=== PATIENT | male | born 1970 | race Caucasian/White ===

== ENCOUNTER 2017-05-08 17:32 | Inpatient (IN) | payer MEDICARE, MEDICAID ==
[~2017-05-08] VITALS: Ht 177.8 cm; Wt 122.7 kg
[~2017-05-08 17:32] MED LIST changes: -LOR1 PO
[2017-05-08] MEDS ORDERED: FOSPHENYTOIN(*) 500 MG/10 ML V 1,000 MG in NS(*) 0.9% 100 ML BAG 80 ML IVPB ONE (17:40)
[2017-05-08] MEDS ORDERED: LORazepam 2 MG/ML VIAL IVP ONE (17:40)
--- NOTE | 2017-05-08 17:44 | ER Report ---
History and Physical Time Seen By MD: 17:38 (MARJAN HENRY DO) HPI/ROS CHIEF COMPLAINT: seizure d/o HISTORY OF PRESENT ILLNESS: PT brought in by ems for seizure. Pt has known seizure d/o after being dx with glioblastoma brain tumor in 2013. PT had surgery in 2013 and 2014 for the tumor. Pt is on vimpat per ems. Pt had a seizure at home. Per ems pt felt it come on and took 1mg ativan prior to seizing. ems was called and pt was postictal on arrival. Pt then had a second seizure lasted less then a minute and was given ativan by ems. Pt on arrival to ed had a third seizure that lasted about 1 minute that was witnessed as left lateral gaze and shaking of left arm. Pt is currently postictal. Family is on way here. PT last seizure was in March when he was found to have subdural. REVIEW OF SYSTEMS: unable to obtain due to postictal (MARJAN HENRY DO) Allergies: Coded Allergies: No Known Allergies (Verified Allergy, Mild, 03/29/16) Home Meds Reported Medications Lorazepam (LORAZEPAM) 1 Mg Tab, 1 MG PO Q8H, TAB 05/08/17 Dexamethasone (DEXAMETHASONE) 1 Mg Tab, 0.5 MG PO PRN, TAB 01/13/15 Lacosamide (VIMPAT) 100 Mg Tab, 50 MG PO BID, TAB 08/14/14 Discontinued Reported Medications Temozolomide (TEMODAR) 100 Mg Capsule, 280 MG PO 5 DAYS, THEN OFF 23, CAPSULE 08/14/14 Past Medical/Surgical History pmhx: seizures, fractures, occasional alcohol use, chemotherapy, glioblastoma. Pshx: craniotomy x2 for tumor. (MARJAN HENRY DO) Reviewed Nurses Notes: Yes Old Medical Records Reviewed: Yes (MARJAN HENRY DO) Hx Smoking: No Smoking Status: Former Smoker Hx Substance Use Disorder: Yes (UNKNOWN) Hx Alcohol Use: Yes (OCCASIONALLY) (MARJAN HENRY DO) Constitutional Vital Sign - Last 24 Hours 05/08/17 05/08/17 05/08/17 05/08/17 17:35 17:40 17:47 17:53 Pulse 125 113 Resp 60 25 B/P (MAP) 167/72 167/72 (103) Pulse Ox 95 94 O2 Delivery Non-Rebreather O2 Flow Rate 15.0 1/31/18 1/31/18 1/31/18 1/31/18 18:00 18:02 18:02 18:19 Pulse 117 Resp 27 B/P (MAP) 131/60 (83) 119/62 (81) Pulse Ox 95 O2 Flow Rate 12.0 05/08/17 05/08/17 05/08/17 05/08/17 18:32 18:34 18:37 18:43 Temp 97.8 Pulse 116 115 Resp 21 20 B/P (MAP) 103/47 (65) Pulse Ox 92 92 05/08/17 05/08/17 05/08/17 05/08/17 18:47 18:50 18:57 19:00 Pulse 111 101 Resp 20 B/P (MAP) 115/51 (72) 115/68 (84) Pulse Ox 94 98 05/08/17 05/08/17 19:07 19:17 Pulse 95 86 Pulse Ox 96 94 Intake and Output 05/08/17 05/08/17 05/09/17 15:00 23:00 07:00 Intake Total 1100 ml Balance 1100 ml (DAKOTA WALLACE MD) Physical Exam General Appearance: pt is postictal Eyes: pupils 3mm with left lateral gaze ENT: no pharyngeal erythema or exudates, Mucous membranes are moist, TM are nl b/l Respiratory: There are no retractions, lungs are clear to auscultation. Cardiovascular: Regular rate and rhythm. pulses are equal and symmetrical Gastrointestinal: Abdomen is soft and non tender, no masses, bowel sounds normal, no guarding, no rigidity or rebound Neurological: active seizure on arrival Skin: Warm and dry, no rashes. Musculoskeletal: Neck is supple non tender, no vertebral tenderness Extremities are nontender, non swollen and have full range of motion. DIFFERENTIAL DIAGNOSIS: After history and physical exam differential diagnosis was considered for intracranial bleed, return of brain tumor, brain edema, infection (LAURORA,MARJAN V ) Medical Decision Making Data Points Result Diagram: 05/08/17 1725 05/08/17 1725 Laboratory Hematology Test 05/08/17 17:25 05/08/17 18:00 05/08/17 18:25 Red Blood Count 5.79 M/uL (4.00-5.60) Mean Corpuscular Volume 98.9 fL (80.0-96.0) Mean Corpuscular Hemoglobin 30.6 pg (26.0-33.0) Mean Corpuscular Hemoglobin Concent 30.9 g/dL (32.0-36.0) Red Cell Distribution Width 14.7 % (11.5-14.5) Mean Platelet Volume 9.1 fL (7.2-11.1) Neutrophils (%) (Auto) 41.2 % (39.4-72.5) Lymphocytes (%) (Auto) 44.6 % (17.6-49.6) Monocytes (%) (Auto) 9.6 % (4.1-12.4) Eosinophils (%) (Auto) 3.9 % (0.4-6.7) Basophils (%) (Auto) 0.7 % (0.3-1.4) Nucleated RBC Relative Count (auto) 0.0 /100WBC Neutrophils # (Auto) 7.2 K/uL (2.0-7.4) Lymphocytes # (Auto) 7.8 K/uL (1.3-3.6) Monocytes # (Auto) 1.7 K/uL (0.3-1.0) Eosinophils # (Auto) 0.7 K/uL (0.0-0.5) Basophils # (Auto) 0.1 K/uL (0.0-0.1) Nucleated RBC Absolute Count (auto) 0.01 K/uL Peripheral Blood Smear Yes Y/N Sodium Level 148 mmol/L (137-145) Potassium Level 4.2 mmol/L (3.5-5.0) Chloride Level 101 mmol/L (98-107) Carbon Dioxide Level < 5 mmol/L (22-30) Blood Urea Nitrogen 18 mg/dl (9-21) Creatinine 2.00 mg/dl (0.66-1.25) Glomerular Filtration Rate Calc 36.1 Random Glucose 161 mg/dl (75-110) Calcium Level 10.7 mg/dl (8.4-10.2) Magnesium Level 2.4 mg/dl (1.7-2.2) Total Bilirubin 0.8 mg/dl (0.2-1.3) Aspartate Amino Transf (AST/SGOT) 67 U/L (0-35) Alanine Aminotransferase (ALT/SGPT) 127 U/L (0-56) Alkaline Phosphatase 118 U/L (0-126) Total Protein 9.2 gm/dl (6.3-8.2) Albumin 5.8 g/dl (3.5-5.0) Phenytoin (Dilantin) Level < 3.0 ug/ml Phenytoin Last Dose Date . Serum Alcohol < 10 mg/dl Influenza Virus Type A (PCR) Negative (NEGATIVE) Influenza Virus Type B (PCR) Negative (NEGATIVE) Blood Gas Patient Temperature 97.8 DEGREES Venous Blood pH 7.04 (7.31-7.41) Venous Blood Partial Pressure CO2 29 mmHg Venous Blood Partial Pressure O2 132 mmHg Venous Blood HCO3 8 mmol/L Venous Blood Oxygen Saturation 97 % Venous Blood Base Excess -23 mmol/L Oxygen Liters/Minute Unknown Chemistry Test 05/08/17 17:25 05/08/17 18:00 05/08/17 18:25 White Blood Count 17.6 k/uL (4.5-11.0) Red Blood Count 5.79 M/uL (4.00-5.60) Hemoglobin 17.7 g/dL (14.0-18.0) Hematocrit 57.2 % (42.0-52.0) Mean Corpuscular Volume 98.9 fL (80.0-96.0) Mean Corpuscular Hemoglobin 30.6 pg (26.0-33.0) Mean Corpuscular Hemoglobin Concent 30.9 g/dL (32.0-36.0) Red Cell Distribution Width 14.7 % (11.5-14.5) Platelet Count 319 K/uL (150-450) Mean Platelet Volume 9.1 fL (7.2-11.1) Neutrophils (%) (Auto) 41.2 % (39.4-72.5) Lymphocytes (%) (Auto) 44.6 % (17.6-49.6) Monocytes (%) (Auto) 9.6 % (4.1-12.4) Eosinophils (%) (Auto) 3.9 % (0.4-6.7) Basophils (%) (Auto) 0.7 % (0.3-1.4) Nucleated RBC Relative Count (auto) 0.0 /100WBC Neutrophils # (Auto) 7.2 K/uL (2.0-7.4) Lymphocytes # (Auto) 7.8 K/uL (1.3-3.6) Monocytes # (Auto) 1.7 K/uL (0.3-1.0) Eosinophils # (Auto) 0.7 K/uL (0.0-0.5) Basophils # (Auto) 0.1 K/uL (0.0-0.1) Nucleated RBC Absolute Count (auto) 0.01 K/uL Peripheral Blood Smear Yes Y/N Glomerular Filtration Rate Calc 36.1 Calcium Level 10.7 mg/dl (8.4-10.2) Magnesium Level 2.4 mg/dl (1.7-2.2) Total Bilirubin 0.8 mg/dl (0.2-1.3) Aspartate Amino Transf (AST/SGOT) 67 U/L (0-35) Alanine Aminotransferase (ALT/SGPT) 127 U/L (0-56) Alkaline Phosphatase 118 U/L (0-126) Total Protein 9.2 gm/dl (6.3-8.2) Albumin 5.8 g/dl (3.5-5.0) Phenytoin (Dilantin) Level < 3.0 ug/ml Phenytoin Last Dose Date . Serum Alcohol < 10 mg/dl Influenza Virus Type A (PCR) Negative (NEGATIVE) Influenza Virus Type B (PCR) Negative (NEGATIVE) Blood Gas Patient Temperature 97.8 DEGREES Venous Blood pH 7.04 (7.31-7.41) Venous Blood Partial Pressure CO2 29 mmHg Venous Blood Partial Pressure O2 132 mmHg Venous Blood HCO3 8 mmol/L Venous Blood Oxygen Saturation 97 % Venous Blood Base Excess -23 mmol/L Oxygen Liters/Minute Unknown Toxicology Test 05/08/17 17:25 Phenytoin (Dilantin) Level < 3.0 ug/ml Phenytoin Last Dose Date . Serum Alcohol < 10 mg/dl (DAKOTA WALLACE MD) ED Course/Re-evaluation ED Course 05/08/2017 5:50:07 pm will load pt with fosphenytoin. 05/08/2017 5:58:11 pm Parents arrived. Spoke with parents. They state that pt had gleioblastoma stage 4 but after 2 surgeries and chemo/radiation that it has resolved. [place] and [place] most recent MRI was this April and all was okay per family. Parents that the seizure they witnessed was "mild" and went fast. They say he did not feel well today and had nasal congestion and tought a cold was coming on so took Cold Ease. No known fevers. Did let the family know that it is change of staff and the Dr. wallace will be taking over while awaiting labs and imaging. 05/08/2017 6:05:24 pm Signed out to Dr. Wallace. (MARJAN HENRY DO) ED Course Vital signs improving throughout ED stay. 05/08/2017 7:21:07 pm heart rate 88 saturation 95% on nasal cannula. CT negative for acute cranial hemorrhage family informed after Quintana paged for admission and agrees with plan to continue fluids at this time. Decision to Disposition Date: May 08, 2017 Decision to Disposition Time: 19:21 (DAKOTA WALLACE MD) Depart Departure Latest Vital Signs Vital Signs Date Time Temp Pulse Resp B/P (MAP) Pulse Ox O2 Delivery O2 Flow Rate FiO2 05/08/17 19:17 86 94 05/08/17 19:00 115/68 (84) 05/08/17 18:47 20 05/08/17 18:34 97.8 05/08/17 18:02 12.0 05/08/17 17:35 Non-Rebreather (DAKOTA WALLACE MD) Impression: Primary Impression: Grand mal seizure Additional Impression: Recurrent seizures Condition: Improved Disposition: Admitted from ER Problem Qualifiers MARJAN HENRY DO May 08, 2017 17:44 DAKOTA WALLACE MD May 08, 2017 19:23
[2017-05-08] MEDS ORDERED: LOR1 PO (17:57)
[2017-05-08 17:58] LABS: PLATELET COUNT, AUTOMATED 319 K/uL (150-450)
[2017-05-08] MEDS ORDERED: NS(*) 0.9% 1000 ML BAG 1,000 ML IV ONE (18:20)
[2017-05-08] MEDS ORDERED: EMS NS 0.9%(*) 1000 ML BAG 1,000 ML IV ONE (18:20)
--- NOTE | 2017-05-08 18:37 | RADIOLOGY IMAGING REPORT ---
FAC[place] [facility] [place]IENT NAME: Milli Ram : 1970 MR: [id number] V: [id number] EXAM DATE: ORDERING PHYSICIAN: MARJAN HENRY TECHNOLOGIST: Location[place] [facility] [place]: Milli Ram : 1970 Visit/Account:[id number] Date of Sevice: 05/08/2017 CHEST SINGLE AP History: Seizure, congestion. Comparison 03/29/2016. FINDINGS: Lungs are clear, no effusion. No pneumothorax. Heart size within normal limits. Mediastinal contour w ithin normal limits. IMPRESSION: No evidence of acute cardiopulmonary disease. Report Dictated By: Aric Carlson MD at 05/08/2017 6:32 PM Report E-Signed By: Aric Carlson MD at 05/08/2017 6:32 PM WSN:[id number]
--- NOTE | 2017-05-08 18:37 | RADIOLOGY IMAGING REPORT ---
FACILITY: [facility] [place] PATIENT NAME: Milli Ram : 1970 MR: [id number] V: [id number] EXAM DATE: ORDERING PHYSICIAN: MARJAN HENRY TECHNOLOGIST: Location: [facility] Patient: Milli Ram : 1970 Visit/Account:[id number] Date of Sevice: 05/08/2017 EXAMINATION: Head CT without intravenous contrast History:Seizure TECHNIQUE: Contiguous axial images were obtained from the skull base to the vertex without intraven ous contrast. One of the following dose optimization techniques was utilized in the performance of th is exam: Automated exposure control; adjustment of the mA and/or kV according to the patient's size; or use of an iterative reconstruction technique. Specific details can be referenced in the facility 's radiology CT exam operational policy. COMPARISON STUDIES: 03/29/2016 FINDINGS: Visualized mastoid air cells / paranasal sinuses: negative Skull base / calvarium: Remote right parietal craniotomy. White matter: Right parietal lobe encephalomalacia unchanged. Mild chronic small vessel disease. Dural venous sinuses / arterial structures: negative Ventricles / sulci / fissures: Enlarged but within normal limits for age. Masses / hemorrhage / midline shift: negative Extra-axial spaces: negative IMPRESSION: No evidence of acute intracranial pathology or significant change. Report Dictated By: Aric Carlson MD at 05/08/2017 6:30 PM Report E-Signed By: Aric Calrson MD at 05/08/2017 6:32 PM WSN:[id number]
[2017-05-08 20:11] VITALS: BP 111/53
[2017-05-08] MEDS ORDERED: NS(*) 0.9% 1000 ML BAG 1,000 ML IV PRN (20:52)
[2017-05-08] MEDS: PATIENT'S OWN MED PO SCH (21:00)
--- NOTE | 2017-05-08 21:18 | History & Physical ---
History of Present Illness Chief Complaint Seizure History of Present Illness 46yo male with PMHx significant for seizure disorder following craniotomy for resection of glioblastoma in 2013. He has been managed with Vimpat 50mg PO BID and Ativan 1mg PO along with Decadron 1mg PO PRN seizure. His seizures are reported as focal with generalization. He will begin with weakness/heaviness in left arm and will occasionally resolve, but can generalize. He reports that he has been doing very well up until this evening. Tonight he was working on his computer, which can occasionally cause his seizures to occur. He remembers the left upper extremity symptoms and then he does not remember much else. His family reports at least two generalized tonic-clonic seizures. He was brought to the ER for evaluation and was noted to have focal seizure activity. He was still rather confused/post-ictal. His CT scan did not show any acute changes. His labs were remarkable for elevation of his WBC count and significant acidosis. He was recommended for admission. History Problems: (1) Status post craniotomy Status: Resolved (2) Glioblastoma multiforme of brain Status: Chronic (3) Grand mal seizure Status: Chronic (4) Elevated serum creatinine Status: Chronic (5) Subdural hematoma Status: Resolved Home Meds Reported Medications Lorazepam (LORAZEPAM) 1 Mg Tab, 1 MG PO Q8H, TAB 05/08/17 Dexamethasone (DEXAMETHASONE) 1 Mg Tab, 0.5 MG PO PRN, TAB 01/13/15 Lacosamide (VIMPAT) 100 Mg Tab, 50 MG PO BID, TAB 08/14/14 Discontinued Reported Medications Temozolomide (TEMODAR) 100 Mg Capsule, 280 MG PO 5 DAYS, THEN OFF 23, CAPSULE 08/14/14 Allergies: Coded Allergies: No Known Allergies (Verified Allergy, Mild, 03/29/16) Hx Smoking: No Smoking Status: Former Smoker Hx Alcohol Use: Yes (OCCASIONALLY) Hx Substance Use Disorder: No Review of Systems Constitutional: No Fever, No Chills, No Night Sweats Eyes: No Vision Change, No Loss of Vision Cardiovascular: No Chest Pain Respiratory: No Shortness of Breath Gastrointestinal: No Nausea, No Vomiting Genitourinary: No Dysuria, No Hematuria Exam Vital Signs Vital Signs Date Time Temp Pulse Resp B/P (MAP) Pulse Ox O2 Delivery O2 Flow Rate FiO2 05/08/17 20:11 98.6 87 15 111/53 (72) 99 Nasal Cannula 2.0 General Appearance: Other (He is slightly somnolent, but awakens and answers all questions) Neuro: Other (Motor exam is grossly normal/equal) Eyes: PERRLA ENT: Oropharynx Clear Neck: No Masses Cardiovascular: Regular Rate and Rhythm Respiratory: Clear to Auscultation Chest: No Tenderness GI: Abd Soft and Non-Tender : No CVA Tenderness Lymph: No Adenopathy Extremities: Warm, Perfused Integumentary: Skin Intact without Lesion / Mass Medical Decision Making Data Points Result Diagram: 05/08/17 1725 05/08/17 1725 Item Value Date Time Albumin 5.8 g/dl H 05/08/17 1725 Total Protein 9.2 gm/dl H 05/08/17 1725 Alkaline Phosphatase 118 U/L 05/08/17 1725 Alanine Aminotransferase (ALT/SGPT) 127 U/L H 05/08/17 1725 Aspartate Amino Transf (AST/SGOT) 67 U/L H 05/08/17 1725 Total Bilirubin 0.8 mg/dl 05/08/17 1725 Magnesium Level 2.4 mg/dl H 05/08/17 1725 Calcium Level 10.7 mg/dl H 05/08/17 1725 Random Glucose 161 mg/dl H 05/08/17 1725 Serum Alcohol < 10 mg/dl 05/08/17 1725 Phenytoin (Dilantin) Level < 3.0 ug/ml 05/08/17 1725 Influenza Virus Type A (PCR) Negative 05/08/17 1800 Influenza Virus Type B (PCR) Negative 05/08/17 1800 Oxygen Liters/Minute Unknown 05/08/17 1825 Venous Blood Base Excess -23 mmol/L 05/08/17 1825 Venous Blood Oxygen Saturation 97 % 05/08/17 1825 Venous Blood HCO3 8 mmol/L 05/08/17 1825 Venous Blood Partial Pressure O2 132 mmHg 05/08/17 1825 Venous Blood Partial Pressure CO2 29 mmHg 05/08/17 182 Venous Blood pH 7.04 L 05/08/17 182 Blood Gas Patient Temperature 97.8 DEGREES 05/08/17 1825 EKG / Imaging Imaging PATIENT NAME: Milli Ram : 1970 MR: [id number] V: [id number] EXAM DATE: ORDERING PHYSICIAN: MARJAN HENRY TECHNOLOGIST: Location: [facility] - [place] Patient: Milli Ram : 1970 Visit/Account:[id number] Date of Sevice: 05/08/2017 EXAMINATION: Head CT without intravenous contrast History:Seizure TECHNIQUE: Contiguous axial images were obtained from the skull base to the vertex without intravenous contrast. One of the following dose optimization techniques was utilized in the performance of this exam: Automated exposure control; adjustment of the mA and/or kV according to the patient's size; or use of an iterative reconstruction technique. Specific details can be referenced in the facility's radiology CT exam operational policy. COMPARISON STUDIES: 03/29/2016 FINDINGS: Visualized mastoid air cells / paranasal sinuses: negative Skull base / calvarium: Remote right parietal craniotomy. White matter: Right parietal lobe encephalomalacia unchanged. Mild chronic small vessel disease. Dural venous sinuses / arterial structures: negative Ventricles / sulci / fissures: Enlarged but within normal limits for age. Masses / hemorrhage / midline shift: negative Extra-axial spaces: negative IMPRESSION: No evidence of acute intracranial pathology or significant change. Report Dictated By: Aric Carlson MD at 05/08/2017 6:30 PM Report E-Signed By: Aric Carlson MD at 05/08/2017 6:32 PM WSN:[id number] PATIENT NAME: Milli Ram : 1970 MR: [id number] V: [id number] EXAM DATE: [id number] ORDERING PHYSICIAN: MARJAN HENRY TECHNOLOGIST: Location: [facility] - [place] Patient: Milli Ram : 1970 Visit/Account:[id number] Date of Sevice: 05/08/2017 CHEST SINGLE AP History: Seizure, congestion. Comparison 03/29/2016. FINDINGS: Lungs are clear, no effusion. No pneumothorax. Heart size within normal limits. Mediastinal contour within normal limits. IMPRESSION: No evidence of acute cardiopulmonary disease. Report Dictated By: Aric Carlson MD at 05/08/2017 6:32 PM Report E-Signed By: Aric Carlson MD at 05/08/2017 6:32 PM WSN:[id number] Assessment and Plan Problems: (1) Recurrent seizures Status: Acute Assessment & Plan: Most likely a breakthrough seizure on his Vimpat. He is currently on a rather low dose. We discussed increasing his Vimpat to 100mg PO BID to hopefully reduce risk for further recurrent seizures. He is willing to make the change. He was loaded with IV Dilantin in the ER, but will hold off on adding the second agent for now. It is possible he may need further modification of his regimen. (2) Metabolic acidosis Status: Acute Assessment & Plan: Due to seizure activity. Will give generous IV fluids. Watch labs. (3) Glioblastoma multiforme of brain Status: Acute Assessment & Plan: CT scan is unchanged. May need to consider MRI. (4) Elevated serum creatinine Status: Chronic Assessment & Plan: He has chronic mild elevation of his creatinine, but it is slightly higher today. Will give IV fluids and watch labs. Venous Thromboembolism Antithrombotics Is Pt On Any Antithrombotics?: No Prophylaxis Tx Contraindicated Pharmacological Contraindicati: Medical Contraindication (recent seizure/ history of subdural hematoma) Exam Sepsis Risk: No Definite Risk MERVIN CELESTE MD May 08, 2017 21:18
[2017-05-08 23:12] VITALS: BP 117/60
[2017-05-09 06:00] LABS: PLATELET COUNT, AUTOMATED 218 K/uL (150-450)
[2017-05-09 07:49] VITALS: BP 127/69
[2017-05-09 08:32] VITALS: Ht 177.8 cm; Wt 122.7 kg
[2017-05-09] MEDS: PATIENT'S OWN MED PO SCH ×2 (08:58→09:01)
[2017-05-09] MEDS ORDERED: NS(*) 0.9% 1000 ML BAG 1,000 ML IV PRN (09:31)
[2017-05-09] MEDS ORDERED: ENOXAPARIN 40 MG/0.4ML SYR SC SCH (09:35)
[2017-05-09] MEDS ORDERED: LORazepam 1 MG TAB PO PRN (10:35)
[2017-05-09] MEDS ORDERED: DEXAMETHASONE 1 MG TAB PO PRN (10:35)
[2017-05-09 11:51] VITALS: BP 123/78
--- NOTE | 2017-05-09 13:16 | Hospitalist Depart ---
Discharge Summary Reason for Hosp/Final Diag: (1) Recurrent seizures Status: Acute Hospital Course & Plan: 46yo male with PMHx significant for seizure disorder following craniotomy for resection of glioblastoma in 2013. He has been managed with Vimpat 50mg PO BID and Ativan 1mg PO along with Decadron 1mg PO PRN seizure. His seizures are reported as focal with generalization. He will begin with weakness/heaviness in left arm and will occasionally resolve, but can generalize. He reports that he has been doing very well up until this evening. Tonight he was working on his computer, which can occasionally cause his seizures to occur. He remembers the left upper extremity symptoms and then he does not remember much else. His family reports at least two generalized tonic- clonic seizures. He was brought to the ER for evaluation and was noted to have focal seizure activity. He was still rather confused/post-ictal. His CT scan did not show any acute changes. His labs were remarkable for elevation of his WBC count and significant acidosis. He was recommended for admission. 05/08: Most likely a breakthrough seizure on his Vimpat. He is currently on a rather low dose. We discussed increasing his Vimpat to 100mg PO BID to hopefully reduce risk for further recurrent seizures. He is willing to make the change. He was loaded with IV Dilantin in the ER, but will hold off on adding the second agent for now. It is possible he may need further modification of his regimen. 2: Patient refused the 100mg Wimpat and he also refused SCD's and Lovenox. He is feeling better and he is afebrile, hemodynamically and medically stable with any further seizure activity. He said he will continue to use his home regimen of medications and he will follow the neurologist and Oncologist. (2) Metabolic acidosis Status: Resolved Hospital Course & Plan: Due to seizure activity. Will give generous IV fluids. Watch labs. 2: His HCO has improved to 20 with IVF (3) Glioblastoma multiforme of brain Status: Chronic Hospital Course & Plan: CT scan is unchanged. May need to consider MRI. (4) Elevated serum creatinine Status: Chronic Hospital Course & Plan: He has chronic mild elevation of his creatinine, but it is slightly higher today. Will give IV fluids and watch labs. 2: I have advised him to increase PO fluid intake. His GFR is 59ml/min Departure Weight (Pounds): 270 Weight (Ounces): 8.0 Result Diagram: 05/09/1751405/09/17514 Condition: Improved Discharge: Home, Self Care Time Spent: < 30 min Discharge Instructions Home Meds Reported Medications Lorazepam (LORAZEPAM) 1 Mg Tab, 1 MG PO Q8H, TAB 05/08/17 Dexamethasone (DEXAMETHASONE) 1 Mg Tab, 0.5 MG PO PRN, TAB 01/13/15 Lacosamide (VIMPAT) 100 Mg Tab, 50 MG PO BID, TAB 08/14/14 Discontinued Reported Medications Temozolomide (TEMODAR) 100 Mg Capsule, 280 MG PO 5 DAYS, THEN OFF 23, CAPSULE 08/14/14 Diet: Regular Special Instructions: Follow up with Primary Care Provider in 7-10 days Copies to: SEEMA BEEBE MD Venous Thromboembolism Antithrombotics Is Pt On Any Antithrombotics?: No GRACIE DUMONT MD May 09, 2017 13:16
[2017-05-09] MEDS ORDERED: LACOSAMIDE 100 MG TAB PO SCH (21:00)
[2017-05-10] MEDS ORDERED: INFLUENZA VIRUS VAC 0.5 ML SYR IM ONLY ONE (09:00)
== END 2017-05-09 12:40 | disposition home or self-care (01) | DRG 101 ==
LOC: ER 17:54 → MED 19:34
PROVIDERS: ADMIT Internal Medicine; ATTEND Internal Medicine
DX: G40.909 Epilepsy, unspecified, not intractable, without status epilepticus (principal); E87.2 Acidosis; R79.89 Other specified abnormal findings of blood chemistry; Z92.21 Personal history of antineoplastic chemotherapy; Z86.79 Personal history of other diseases of the circulatory system; Z87.891 Personal history of nicotine dependence; Z98.890 Other specified postprocedural states; Z85.841 Personal history of malignant neoplasm of brain
CPT/HCPCS: 36415; 70450; 71045; 80185; 80320; 82040; 82247; 82310; 82374; 82435; 82565; 82803; 82947; 83735; 84075; 84132; 84155; 84295; 84450; 84460; 84520; 85025; 87502; 96361; 96365; 96375; 99285; J2060; J7030; J7050; Q2009

== ENCOUNTER → 2017-05-08 | Outpatient (CLI) | payer MEDICARE, MEDICAID ==
[~2017-05-08] MED LIST: AMOX-559 PO; DEX1 PO; FLUT16SP19 NS; LAC100PT PO; LOR1 PO; PHEN100C88 PO; TOBOO OU; [UNRECOGNIZED DRUG - CODE] PO
[2017-05-09 08:32] VITALS: BMI 38.7
== END ==
LOC: AMB 16:50
PROVIDERS: ATTEND Nurse Practitioner
DX: G40.401 Other generalized epilepsy and epileptic syndromes, not intractable, with status epilepticus (principal); R00.0 Tachycardia, unspecified; R09.02 Hypoxemia
CPT/HCPCS: A0425; A0427

== ENCOUNTER 2017-06-19 16:20 | Emergency (ER) | payer MEDICARE, MEDICAID ==
[2017-05-09 08:32] VITALS: Wt 122.7 kg
[~2017-06-19 16:20] MED LIST changes: +LOR1 PO
--- NOTE | 2017-06-19 16:39 | ER Report ---
History and Physical Time Seen By MD: 16:16 Hx. of Stated Complaint: "chest weirdness" started about 45 min ago. "very healthy" and worried since this has never happenede before HPI/ROS CHIEF COMPLAINT: Palpitation HISTORY OF PRESENT ILLNESS: 46-year-old male history of glioblastoma status post successful wrist/resection has been cancer free now for 4 years comes to the emergency department today with a complaint of palpitations patient states that as he was walking he felt a flutter in his chest lasted several minutes and subsequently resolved on arrival here was having a believe one time before but otherwise has no other issues denies any chest pain shortness of breath nausea vomiting diarrhea fever chills diaphoresis or other complaints noted patient states currently C feels relatively symptom-free REVIEW OF SYSTEMS: Respiratory: No cough, no dyspnea. Cardiovascular: Palpitations no chest pain Gastrointestinal: No vomiting, no abdominal pain. Musculoskeletal: No back pain. Remainder of the 14 system rev: Yes Allergies: Coded Allergies: No Known Allergies (Verified Allergy, Mild, 06/19/17) Home Meds Reported Medications Lorazepam (LORAZEPAM) 1 Mg Tab, 1 MG PO Q8H, TAB 05/08/17 Dexamethasone (DEXAMETHASONE) 1 Mg Tab, 0.5 MG PO PRN, TAB 01/13/15 Lacosamide (VIMPAT) 100 Mg Tab, 50 MG PO BID, TAB 08/14/14 Reviewed Nurses Notes: Yes Old Medical Records Reviewed: Yes Hx Smoking: No Smoking Status: Former Smoker Hx Substance Use Disorder: Yes (UNKNOWN) Hx Alcohol Use: Yes (OCCASIONALLY) Constitutional Vital Sign - Last 24 Hours 06/19/17 16:28 Temp 98.5 Pulse 65 Resp 14 B/P (MAP) 144/76 Pulse Ox 95 O2 Delivery Room Air Physical Exam General Appearance: The patient is alert, has no immediate need for airway protection and no current signs of toxicity. [ ] Eyes: Pupils equal and round no injection. Respiratory: Chest is non tender, lungs are clear to auscultation. Cardiac: regular rate and rhythm [ ] Gastrointestinal: Abdomen is soft and non tender, no masses, bowel sounds normal. Musculoskeletal: Neck: Neck is supple and non tender. Extremities have full range of motion and are non tender. Skin: No rashes or lesions. [ ] DIFFERENTIAL DIAGNOSIS: After history and physical exam differential diagnosis was considered for palpitations A. fib A flutter cardiac dysrhythmia pulmonary emboli Medical Decision Making Data Points Result Diagram: 06/19/17 1644 06/19/17 1644 Laboratory Hematology Test 06/19/17 16:44 Red Blood Count 4.89 M/uL (4.00-5.60) Mean Corpuscular Volume 90.4 fL (80.0-96.0) Mean Corpuscular Hemoglobin 31.0 pg (26.0-33.0) Mean Corpuscular Hemoglobin Concent 34.2 g/dL (32.0-36.0) Red Cell Distribution Width 13.7 % (11.5-14.5) Mean Platelet Volume 8.2 fL (7.2-11.1) Neutrophils (%) (Auto) 54.1 % (39.4-72.5) Lymphocytes (%) (Auto) 32.9 % (17.6-49.6) Monocytes (%) (Auto) 9.0 % (4.1-12.4) Eosinophils (%) (Auto) 3.1 % (0.4-6.7) Basophils (%) (Auto) 0.9 % (0.3-1.4) Nucleated RBC Relative Count (auto) 0.1 /100WBC Neutrophils # (Auto) 3.5 K/uL (2.0-7.4) Lymphocytes # (Auto) 2.2 K/uL (1.3-3.6) Monocytes # (Auto) 0.6 K/uL (0.3-1.0) Eosinophils # (Auto) 0.2 K/uL (0.0-0.5) Basophils # (Auto) 0.1 K/uL (0.0-0.1) Nucleated RBC Absolute Count (auto) 0.00 K/uL D-Dimer Quantitative (PE/DVT) < 0.27 ug/ml (0-0.50) Sodium Level 138 mmol/L (137-145) Potassium Level 3.9 mmol/L (3.5-5.0) Chloride Level 102 mmol/L (98-107) Carbon Dioxide Level 25 mmol/L (22-30) Blood Urea Nitrogen 17 mg/dl (9-21) Creatinine 1.30 mg/dl (0.66-1.25) Glomerular Filtration Rate Calc 59.4 Random Glucose 131 mg/dl (75-110) Calcium Level 8.6 mg/dl (8.4-10.2) Total Bilirubin 0.4 mg/dl (0.2-1.3) Aspartate Amino Transf (AST/SGOT) 46 U/L (0-35) Alanine Aminotransferase (ALT/SGPT) 94 U/L (0-56) Alkaline Phosphatase 98 U/L (0-126) Troponin I < 0.012 ng/ml Total Protein 6.6 gm/dl (6.3-8.2) Albumin 3.7 g/dl (3.5-5.0) Chemistry Test 06/19/17 16:44 White Blood Count 6.5 k/uL (4.5-11.0) Red Blood Count 4.89 M/uL (4.00-5.60) Hemoglobin 15.2 g/dL (14.0-18.0) Hematocrit 44.3 % (42.0-52.0) Mean Corpuscular Volume 90.4 fL (80.0-96.0) Mean Corpuscular Hemoglobin 31.0 pg (26.0-33.0) Mean Corpuscular Hemoglobin Concent 34.2 g/dL (32.0-36.0) Red Cell Distribution Width 13.7 % (11.5-14.5) Platelet Count 195 K/uL (150-450) Mean Platelet Volume 8.2 fL (7.2-11.1) Neutrophils (%) (Auto) 54.1 % (39.4-72.5) Lymphocytes (%) (Auto) 32.9 % (17.6-49.6) Monocytes (%) (Auto) 9.0 % (4.1-12.4) Eosinophils (%) (Auto) 3.1 % (0.4-6.7) Basophils (%) (Auto) 0.9 % (0.3-1.4) Nucleated RBC Relative Count (auto) 0.1 /100WBC Neutrophils # (Auto) 3.5 K/uL (2.0-7.4) Lymphocytes # (Auto) 2.2 K/uL (1.3-3.6) Monocytes # (Auto) 0.6 K/uL (0.3-1.0) Eosinophils # (Auto) 0.2 K/uL (0.0-0.5) Basophils # (Auto) 0.1 K/uL (0.0-0.1) Nucleated RBC Absolute Count (auto) 0.00 K/uL D-Dimer Quantitative (PE/DVT) < 0.27 ug/ml (0-0.50) Glomerular Filtration Rate Calc 59.4 Calcium Level 8.6 mg/dl (8.4-10.2) Total Bilirubin 0.4 mg/dl (0.2-1.3) Aspartate Amino Transf (AST/SGOT) 46 U/L (0-35) Alanine Aminotransferase (ALT/SGPT) 94 U/L (0-56) Alkaline Phosphatase 98 U/L (0-126) Troponin I < 0.012 ng/ml Total Protein 6.6 gm/dl (6.3-8.2) Albumin 3.7 g/dl (3.5-5.0) Coagulation Test 06/19/17 16:44 D-Dimer Quantitative (PE/DVT) < 0.27 ug/ml ED Course/Re-evaluation ED Course ED course medical decision making patient here for evaluation of a sensation of palpitations which is asymptomatic on arrival EKG chest x-ray unremarkable baseline labs, cardiac markers d-dimer also normal active lites within normal limits monitoring since arrival no sign of any palpitations or cardiac abnormality we'll refer him to primary care and then recommend outpatient 24- hour examination with a Holter monitor and return if symptoms worsen Decision to Disposition Date: Jun 19, 2017 Decision to Disposition Time: 17:36 Depart Departure Latest Vital Signs Vital Signs Date Time Temp Pulse Resp B/P (MAP) Pulse Ox O2 Delivery O2 Flow Rate FiO2 06/19/17 16:28 98.5 65 14 144/76 95 Room Air Impression: Primary Impression: Palpitations Condition: Improved Disposition: HOME OR SELF-CARE Referrals: GAURAV JOHN MD 5 Days Patient Instructions: Palpitations (DC) SAURABH DELUCA MD Jun 19, 2017 16:39
[2017-06-19] MEDS ORDERED: ASPIRIN 81 MG CHEW PO ONE (16:40)
--- NOTE | 2017-06-19 16:44 | EKG ---
FAC[place] [facility] [place]IENT NAME: ADILENE FORD : [id number] MR: [id number] V: [id number] EXAM DATE: ORDERING PHYSICIAN: SAURABH DELUCA TECHNOLOGIST: BARBARA Test Reason : IRREG HR Blood Pressure : / mmHG Vent. Rate : 068 BPM Atrial Rate : 068 BPM P-R Int : 182 ms QRS Dur : 118 ms QT Int : 398 ms P-R-T Axes : 036 -10 026 degrees QTc Int : 423 ms Normal sinus rhythm Incomplete right bundle branch block Borderline ECG No previous ECGs available Confirmed by LESVIA ROSE ([id number]) on 06/19/2017 6:26:42 PM Referred By: YOSI Confirmed By:LESVIA ROSE
[2017-06-19 16:53] LABS: PLATELET COUNT, AUTOMATED 195 K/uL (150-450)
--- NOTE | 2017-06-19 17:16 | RADIOLOGY IMAGING REPORT ---
FACILITY: [facility] - [place] PATIENT NAME: Milli Ram : 1970 MR: [id number] V: [id number] EXAM DATE: [id number] ORDERING PHYSICIAN: SAURABH DELUCA TECHNOLOGIST: [place] [facility] [place] Patient: Milli Ram : 1970 Visit/Account:[id number] Date of Sevice: 06/19/2017 Exam type: CHEST PA AND LAT History: Chest pain, history of smoking Comparison: May 08, 2017. Findings: The lungs are free of acute effusions, infiltrates or edema. There is no evidence of a pneumothorax or pneumomediastinum. The cardiac silhouette is normal in size. The trachea is in midline. IMPRESSION: 1. No acute cardiopulmonary process is seen Report Dictated By: Nichelle Valdez MD at 06/19/2017 5:12 PM Report E-Signed By: Nichelle Valdez MD at 06/19/2017 5:12 PM WSN:JOSÉ MIGUEL
[2017-06-19 17:51] VITALS: BP 125/76
== END 2017-06-19 18:01 | disposition home or self-care (01) ==
LOC: ER 16:33
DX: R00.2 Palpitations (principal); I45.10 Unspecified right bundle-branch block
CPT/HCPCS: 71046; 84484; 85025; 85379; 93005; 99284; A9270; 82040; 82247; 82310; 82374; 82435; 82565; 82947; 84075; 84132; 84155; 84295; 84450; 84460; 84520

== ENCOUNTER 2017-09-03 15:10 | Emergency (ER) | payer MEDICARE, MEDICAID ==
[2017-05-09 08:32] VITALS: Wt 125.6 kg
[~2017-09-03 15:10] MED LIST changes: -B VITAMIN; -CIPR-214 PO; -CREATINE; -METR-1 PO; -[UNRECOGNIZED DRUG - REMARK]
--- NOTE | 2017-09-03 15:16 | ER Report ---
History and Physical Time Seen By MD: 15:15 HPI/ROS CHIEF COMPLAINT: Seizure HISTORY OF PRESENT ILLNESS: This is a 46-year-old male who presents to the emergency department via EMS for seizure activity. Patient has a history of craniotomy for a glioblastoma resection since then has had intermittent seizures. Last seizure activity was around March or April. Today the patient had a seizure at home where he lives of his mother and father, the ambulance was contacted and arrived patient upon arrival he came alert somewhat postictal then cleared and was walking out to the ambulance to say goodbye to the EMS crew as he declined the initial transport. Patient then began to have another seizure, was given 1 mg of IV Ativan, calmed down for a few minutes and then had another seizure with a leftward gaze which is pretty typical of his seizure activity at which time he is given another 1 mg of IV Ativan. Upon arrival the patient's has a leftward gaze, eyes are open, but not responding at this time. Not following commands. GCS 10. Incontinent of urine upon arrival. According to the mother the patient has been given his usual medications at home in addition to 2 doses of Ativan at home. According to the mother fluorescent lights and the changes in barometric pressure often times will cause seizure activity. No recent chills, chest pain or shortness of breath according to the mother no other complaints. Also of note is going to the mother the patient has been seen down in its [facility] and has been cancer free since his surgery however on his last appointment they did note there was a spot was questionable they're unsure if this was cancer or artifact and they were going to rescan and address this in the next couple of weeks. Patient takes Vimpat, dexamethasone and lorazepam for his seizure suppression. The patient is classified as "ANILA, non-epileptic seizures". REVIEW OF SYSTEMS: Constitutional: No fever, no chills. Eyes: As above. ENT: No sore throat. Cardiovascular: No chest pain, no palpitations. Respiratory: No cough, no shortness of breath. Gastrointestinal: No abdominal pain, no vomiting. Genitourinary: As above. Musculoskeletal: No back pain. Skin: No rashes. Neurological: As above. Allergies: Coded Allergies: No Known Allergies (Verified Allergy, Mild, 09/03/17) Home Meds Reported Medications Lorazepam (LORAZEPAM) 1 Mg Tab, 1 MG PO Q8H, TAB 05/08/17 Dexamethasone (DEXAMETHASONE) 1 Mg Tab, 0.5 MG PO PRN, TAB 01/13/15 Lacosamide (VIMPAT) 100 Mg Tab, 50 MG PO BID, TAB 08/14/14 Past Medical/Surgical History Patient has a past medical and surgical history of glioblastoma, craniotomy, nonepileptic seizures, right hand fracture, chemotherapy Reviewed Nurses Notes: Yes Hx Smoking: No Smoking Status: Former Smoker Hx Substance Use Disorder: Yes (UNKNOWN) Hx Alcohol Use: Yes (OCCASIONALLY) Constitutional Vital Sign - Last 24 Hours 09/03/17 09/03/17 09/03/17 09/03/17 15:15 15:21 15:25 15:30 Temp 97.4 Pulse 112 113 Resp 18 32 B/P (MAP) 127/79 (95) 127/79 130/74 (92) Pulse Ox 95 95 O2 Delivery Non-Rebreather 09/03/17 09/03/17 09/03/17 09/03/17 15:30 15:51 15:55 16:00 Pulse 119 Resp 25 B/P (MAP) 124/76 (92) 119/65 (83) Pulse Ox 92 O2 Flow Rate 10.0 09/03/17 09/03/17 09/03/17 09/03/17 16:10 16:15 16:25 16:30 Pulse 108 98 Resp 21 17 B/P (MAP) 100/48 (65) 106/60 (75) Pulse Ox 93 93 09/03/17 09/03/17 09/03/17 09/03/17 16:30 16:40 16:45 16:55 Pulse 121 90 Resp 17 B/P (MAP) 100/69 (79) Pulse Ox 90 92 O2 Flow Rate 09/03/17 09/03/17 09/03/17 09/03/17 17:00 17:05 17:15 17:30 Pulse 85 B/P (MAP) 108/59 (75) 105/63 (77) 104/62 (76) Pulse Ox 92 09/03/17 09/03/17 17:35 17:45 Pulse 92 B/P (MAP) 116/83 (94) Physical Exam General Appearance: The patient is alert, has no immediate need for airway protection and no signs of toxicity, gaze to the left, with twitching of the hands, more on the left than the right. Eyes: Pupils equal and round no pallor or injection. Pupils reactive to light, equal. ENT, Mouth: Mucous membranes are moist. Respiratory: There are no retractions, lungs are clear to auscultation. Cardiovascular: Regular rate and rhythm., No murmurs, clicks or rubs. Gastrointestinal: Abdomen is soft and non tender, no masses, bowel sounds normal. Neurological: GCS of 10. Left lateral gaze eyes open spontaneously, patient's feet did withdrawal when the plantar surface of the feet rubbed firmly with an pen. No verbal response at the time of my exam. GCS 15 upon discharge. Skin: Warm and dry, no rashes. Musculoskeletal: Neck is supple non tender. Extremities are nontender, nonswollen and have full range of motion. DIFFERENTIAL DIAGNOSIS: After history and physical exam differential diagnosis was considered for a seizure including but not limited to electrolyte abnormality, alcohol withdrawal, medication noncompliance, head injury, and breakthrough seizure. Medical Decision Making Data Points Result Diagram: 09/03/17 1510 09/03/17 1510 Laboratory Hematology Test 09/03/17 15:10 09/03/17 15:36 Red Blood Count 5.39 M/uL (4.00-5.60) Mean Corpuscular Volume 95.5 fL (80.0-96.0) Mean Corpuscular Hemoglobin 31.2 pg (26.0-33.0) Mean Corpuscular Hemoglobin Concent 32.7 g/dL (32.0-36.0) Red Cell Distribution Width 13.4 % (11.5-14.5) Mean Platelet Volume 8.7 fL (7.2-11.1) Neutrophils (%) (Auto) 48.8 % (39.4-72.5) Lymphocytes (%) (Auto) 37.0 % (17.6-49.6) Monocytes (%) (Auto) 10.3 % (4.1-12.4) Eosinophils (%) (Auto) 3.4 % (0.4-6.7) Basophils (%) (Auto) 0.5 % (0.3-1.4) Nucleated RBC Relative Count (auto) 0.0 /100WBC Neutrophils # (Auto) 7.3 K/uL (2.0-7.4) Lymphocytes # (Auto) 5.5 K/uL (1.3-3.6) Monocytes # (Auto) 1.5 K/uL (0.3-1.0) Eosinophils # (Auto) 0.5 K/uL (0.0-0.5) Basophils # (Auto) 0.1 K/uL (0.0-0.1) Nucleated RBC Absolute Count (auto) 0.00 K/uL Peripheral Blood Smear Yes Y/N Sodium Level 144 mmol/L (137-145) Potassium Level 4.0 mmol/L (3.5-5.0) Chloride Level 101 mmol/L (98-107) Carbon Dioxide Level 5 mmol/L (22-30) Blood Urea Nitrogen 19 mg/dl (9-21) Creatinine 1.60 mg/dl (0.66-1.25) Glomerular Filtration Rate Calc 46.8 Random Glucose 153 mg/dl (75-110) Calcium Level 9.8 mg/dl (8.4-10.2) Magnesium Level 2.3 mg/dl (1.7-2.2) Total Bilirubin 0.6 mg/dl (0.2-1.3) Aspartate Amino Transf (AST/SGOT) 77 U/L (0-35) Alanine Aminotransferase (ALT/SGPT) 106 U/L (0-56) Alkaline Phosphatase 111 U/L (0-126) Total Protein 8.3 gm/dl (6.3-8.2) Albumin 5.3 g/dl (3.5-5.0) Whole Blood Glucose 149 mg/DL (75-110) Chemistry Test 09/03/17 15:10 09/03/17 15:36 White Blood Count 15.0 k/uL (4.5-11.0) Red Blood Count 5.39 M/uL (4.00-5.60) Hemoglobin 16.8 g/dL (14.0-18.0) Hematocrit 51.5 % (42.0-52.0) Mean Corpuscular Volume 95.5 fL (80.0-96.0) Mean Corpuscular Hemoglobin 31.2 pg (26.0-33.0) Mean Corpuscular Hemoglobin Concent 32.7 g/dL (32.0-36.0) Red Cell Distribution Width 13.4 % (11.5-14.5) Platelet Count 290 K/uL (150-450) Mean Platelet Volume 8.7 fL (7.2-11.1) Neutrophils (%) (Auto) 48.8 % (39.4-72.5) Lymphocytes (%) (Auto) 37.0 % (17.6-49.6) Monocytes (%) (Auto) 10.3 % (4.1-12.4) Eosinophils (%) (Auto) 3.4 % (0.4-6.7) Basophils (%) (Auto) 0.5 % (0.3-1.4) Nucleated RBC Relative Count (auto) 0.0 /100WBC Neutrophils # (Auto) 7.3 K/uL (2.0-7.4) Lymphocytes # (Auto) 5.5 K/uL (1.3-3.6) Monocytes # (Auto) 1.5 K/uL (0.3-1.0) Eosinophils # (Auto) 0.5 K/uL (0.0-0.5) Basophils # (Auto) 0.1 K/uL (0.0-0.1) Nucleated RBC Absolute Count (auto) 0.00 K/uL Peripheral Blood Smear Yes Y/N Glomerular Filtration Rate Calc 46.8 Calcium Level 9.8 mg/dl (8.4-10.2) Magnesium Level 2.3 mg/dl (1.7-2.2) Total Bilirubin 0.6 mg/dl (0.2-1.3) Aspartate Amino Transf (AST/SGOT) 77 U/L (0-35) Alanine Aminotransferase (ALT/SGPT) 106 U/L (0-56) Alkaline Phosphatase 111 U/L (0-126) Total Protein 8.3 gm/dl (6.3-8.2) Albumin 5.3 g/dl (3.5-5.0) Whole Blood Glucose 149 mg/DL (75-110) EKG/Imaging EKG Interpretation 12 lead EKG: Time of EKG 1534. Rhythm: Anus tachycardia, ventricular rate 124 bpm. Wykoff: Incomplete right bundle branch block QRS: normal ST segments: Inverted T waves in the V2 V3 leads. No significant changes in the EKG from the 06/19/2017 EKG other than rate. Imaging EXAMINATION: Head CT without intravenous contrast HISTORY: Seizure. History of brain surgery and cancer. COMPARISON: 05/08/2017. TECHNIQUE: Contiguous axial images were obtained from the skull base to the vertex without intravenous contrast. Sagittal and coronal reformatted images are also submitted. One of the following dose optimization techniques was utilized in the performance of this exam: Automated exposure control; adjustment of the mA and/ or kV according to the patient's size; or use of an iterative reconstruction technique. Specific details can be referenced in the facility's radiology CT exam operational policy. FINDINGS: Brain and intracranial structures: Unchanged hypoattenuating region in the right parietal lobe with volume loss. There is mild sulcal and ventricular enlargement. Exit vacuo enlargement of the atrium of the right lateral ventricle. No midline shift, acute hemorrhage, or acute infarct. Vessels: Mild calcification of the carotid siphons. Calvarium / scalp: Right parietal craniotomy with bridging hardware. Skull base / visualized face: Negative. Visualized sinuses / orbits: Mucous retention cyst in the left maxillary sinus. IMPRESSION: No evidence of acute intracranial pathology or significant change since the previous examination. Unchanged region of encephalomalacia in the right parietal lobe. Report Dictated By: Humberto Cain MD at 09/03/2017 4:02 PM Report E-Signed By: Humberto Cain MD at 09/03/2017 4:11 PM [id number] ED Course/Re-evaluation Clinical Indication for ER IV: IV Access ED Course The patient was admitted to room via EMS. The history and physical were obtained. Differential diagnoses were considered. An IV was started via EMS. Patient was given 2 mg by mouth Ativan by his mother at home, patient was also given 2 mg IV Ativan by EMS prior to arrival. Patient arrives with her eyes open with a left-sided gaze hands are tremulous left more than the right, no other seizure activity. It does appear the patient was a condom upon arrival. A CBC and CMP were obtained. CBC showing a white count of 15 which is likely from the seizure activity, CO2 of 5, BUN 19 and creatinine 1.6, glucose 153. The CO2 is similar to what he's had in the past during seizure activities. CT of the brain was negative for any acute abnormalities no changes from previous CTs. EKG sinus tachycardia otherwise unremarkable. The patient was given a 1 L normal saline bolus. As the patient did start to arouse I did talk to him about staying in the hospital versus going home assuming that the laboratory studies and CT were not significantly different from what he's had in the past patient said that he wants to go home does not want to stay in the hospital. I did repeat the laboratory studies and CT studies with the patient and his family. I also spoke with the patient's urologist as noted below, she did make a suggestion to increase his Vimpat from 100 mg twice a day to 150 mg twice a day however the family state that they have had this discussion with the neurologist as noted below and the patient would actually prefer to stop taking the Vimpat altogether, there was also the suggestion of not using the dexamethasone unless absolutely necessary and using the Ativan as needed. The patient did wake and did feel like he was at the point where he could go home with his parents. There was no seizure activity while in the emergency department. The patient does have a follow-up with his neurologist in 4-6 weeks. Patient was instructed to return to the emergency department for any other concerns or worsening symptoms. Patient had no other questions and concerns and was discharged home. 09/03/2017 4:36:03 pm I did go back into reassess the patient, he does wake to light stimulation and voice he is alert and oriented recognizes his surroundings is able to recall seizure from earlier however he does quickly fall asleep but once again will respond with light tactile stimulation and verbal stimulation. When I spoke with patient he said that he would prefer to go home instead of staying in the hospital. 09/03/2017 4:42:34 pm I did speak with Dr. Beebe, the patient's neurologist she states that she did see him recently and they discussed at length taking his Vimpat on a regular basis and not taking the dexamethasone on a regular basis. She suggested increasing the Vimpat dose to 150 mg twice a day and she has a follow-up appointment with him in 4-6 weeks. 09/03/2017 5:00:09 pm I did speak with the patient and the parents were at the bedside regarding my conversation with Dr. Beebe and her recommendations of stopping the dexamethasone or using it very infrequently and increasing the finger pad 250 mg twice a day. The mother did state that they've at this discussion before and the patient does not want to increase the dose of the Vimpat, in fact he would like to "get off the Vimpat". The patient is more alert still sleepy but acting appropriate no seizure activity since his arrival in the emergency department. I did tell him that I will watch him for another hour or so and assuming no other seizure activity or any other concerns develop we can discharge him home at the patient's request. Decision to Disposition Date: September 03, 2017 Decision to Disposition Time: 18:02 Depart Departure Latest Vital Signs Vital Signs Date Time Temp Pulse Resp B/P (MAP) Pulse Ox O2 Delivery O2 Flow Rate FiO2 09/03/17 17:45 116/83 (94) 09/03/17 17:35 92 09/03/17 17:05 92 09/03/17 16:40 17 09/03/17 16:30 09/03/17 15:21 97.4 Non-Rebreather Impression: Primary Impression: Grand mal seizure Additional Impressions: Dehydration Elevated LFTs Condition: Improved Disposition: HOME OR SELF-CARE Referrals: SEEMA BEEBE MD (PCP) Patient Instructions: Nonepileptic Seizures (ED), Recurrent Seizures in Adults (ED) Additional Instructions: Be sure to drink plenty of water. Plenty of rest. It was the recommendation by Dr. Beebe your neurologist that you increase your Vimpat dose from 100mg BID to 150mg BID and stop taking the Dexamethasone unless you absolutely need it. Keep your follow up appointment with Dr. Beebe in [place] for the repeat brain MRI. Your CT today was unchanged from previous CT's, and no acute pathology or bleeding identified. Return to the ED for any other concerns or worsening symptoms. Problem Qualifiers MIMI GARCIA PHOTOGRAPHY MANAGER-BC September 03, 2017 15:15
--- NOTE | 2017-09-03 15:38 | EKG ---
FACILITY: PATIENT NAME: ADILENE FORD : [id number] MR: [id number] V: [id number] EXAM DATE: ORDERING PHYSICIAN: MIMI GARCIA TECHNOLOGIST: JYOTI Garza Reason : SEIZURE Blood Pressure : / mmHG Vent. Rate : 124 BPM Atrial Rate : 124 BPM P-R Int : 166 ms QRS Dur : 114 ms QT Int : 310 ms P-R-T Axes : 042 027 013 degrees QTc Int : 445 ms Sinus tachycardia Incomplete right bundle branch block Nonspecific ST and T wave abnormality Abnormal ECG When compared with ECG of 19-JUN-2017 16:28, Vent. rate has increased BY 56 BPM Confirmed by PARRISH LAZARO ([id number]) on 09/03/2017 6:40:40 PM Referred By: NOE Confirmed By:PARRISH LAZARO
[2017-09-03 15:41] LABS: PLATELET COUNT, AUTOMATED 290 K/uL (150-450)
[2017-09-03] MEDS ORDERED: NS(*) 0.9% 1000 ML BAG 1,000 ML IV ONE (16:10)
--- NOTE | 2017-09-03 16:16 | RADIOLOGY IMAGING REPORT ---
FACILITY: [facility] PATIENT NAME: Milli Ram : 1970 MR: [id number] V: [id number] EXAM DATE: ORDERING PHYSICIAN: MIMI GARCIA TECHNOLOGIST: Location: [facility] Patient: Milli Ram : 1970 Visit/Account:[id number] Date of Sevice: 09/03/2017 EXAMINATION: Head CT without intravenous contrast HISTORY: Seizure. History of brain surgery and cancer. COMPARISON: 05/08/2017. TECHNIQUE: Contiguous axial images were obtained from the skull base to the vertex without intraven ous contrast. Sagittal and coronal reformatted images are also submitted. One of the following dose optimization techniques was utilized in the performance of this exam: Autom ated exposure control; adjustment of the mA and/or kV according to the patient's size; or use of an i terative reconstruction technique. Specific details can be referenced in the facility's radiology C T exam operational policy. FINDINGS: Brain and intracranial structures: Unchanged hypoattenuating region in the right parietal lobe with volume loss. There is mild sulcal and ventricular enlargement. Exit vacuo enlargement of the atrium o f the right lateral ventricle. No midline shift, acute hemorrhage, or acute infarct. Vessels: Mild calcification of the carotid siphons. Calvarium / scalp: Right parietal craniotomy with bridging hardware. Skull base / visualized face: Negative. Visualized sinuses / orbits: Mucous retention cyst in the left maxillary sinus. IMPRESSION: No evidence of acute intracranial pathology or significant change since the previous examination. Unchanged region of encephalomalacia in the right parietal lobe. Report Dictated By: Humberto Cain MD at 09/03/2017 4:02 PM Report E-Signed By: Humberto Cain MD at 09/03/2017 4:11 PM WSN:[id number]
[2017-09-03 17:45] VITALS: BP 116/83
== END 2017-09-03 18:25 | disposition home or self-care (01) ==
LOC: ER 15:19
DX: G40.409 Other generalized epilepsy and epileptic syndromes, not intractable, without status epilepticus (principal); E86.0 Dehydration; R79.89 Other specified abnormal findings of blood chemistry
CPT/HCPCS: 36416; 70450; 82948; 83735; 85025; 93005; 96360; 99283; J7030; 82040; 82247; 82310; 82374; 82435; 82565; 82947; 84075; 84132; 84155; 84295; 84450; 84460; 84520

== ENCOUNTER → 2017-09-03 | Outpatient (CLI) | payer MEDICARE, MEDICAID ==
[2017-05-09 08:32] VITALS: BMI 38.7
[~2017-09-03] MED LIST changes: +B VITAMIN; +CIPR-214 PO; +CREATINE; +METR-1 PO; +[UNRECOGNIZED DRUG - REMARK]
== END ==
LOC: AMB 14:11
PROVIDERS: ATTEND Nurse Practitioner
DX: R56.9 Unspecified convulsions (principal); R53.83 Other fatigue; Z85.841 Personal history of malignant neoplasm of brain
CPT/HCPCS: A0425; A0427

== ENCOUNTER 2017-09-18 11:35 | Emergency (ER) | payer MEDICARE, MEDICAID ==
[2017-05-09 08:32] VITALS: Wt 122.0 kg
[2017-09-18] MEDS ORDERED: B VITAMIN (11:49)
[2017-09-18] MEDS ORDERED: [UNRECOGNIZED DRUG - REMARK] (11:50)
[2017-09-18] MEDS ORDERED: CREATINE (11:50)
--- NOTE | 2017-09-18 12:10 | ER Report ---
History and Physical Time Seen By MD: 11:38 Hx. of Stated Complaint: Pt reporting left lower back pain since 09/11. No burning or pain when urinating. Pt reports this began/ he noticed it when he was standing up from a chair. Pain is constantly there. HPI/ROS Chief Complaint: "left sided back pain" HPI: 46-year-old male presents with left sided back pain that started 4-5 days ago. The pain is located at the left costovertebral angle. Reports, he has been doing some new exercises in the gym that may have contributed to this pain. States the pain is improved slightly when he eats and made worse when drinks five-hour energy drinks. He states he usually takes creatine for muscle building as well as, medications (including dexamethasone) for a brain mass that was discovered. He is post operation x 2 for brain surgery and radiation. The patient reports some change in vision associated with his previous radiation. States, "I just wanted to come in and make sure everything is okay. I have to be careful know that they found the mass in my brain." No other treatments tried. ROS: General: denies night sweats, fever, or chills HEENT: denies, headache, reports changes in vision, denies ear pain Respiratory: denies shortness of breath, reports difficulty breathing at night - waking up with a gasp CV: denies chest pain GI: reports nausea, denies vomiting, denies constipation or diarrhea Musculoskeletal: reports left sided muscular strain Allergies: Coded Allergies: No Known Allergies (Verified Allergy, Mild, 09/03/17) Home Meds Active Scripts Ciprofloxacin Hcl (CIPROFLOXACIN HCL) 500 Mg Tablet, 500 MG PO Q12H, #20 TAB Prov:ALFA TATUM [facility] 09/18/17 Metronidazole (FLAGYL) 500 Mg Tablet, 500 MG PO TID, #30 TAB Prov:ALFA TATUM [facility] 09/18/17 Reported Medications [synthetic protien] No Conflict Check 09/18/17 [creatine] No Conflict Check 09/18/17 [b vitamin] No Conflict Check 09/18/17 Lorazepam (LORAZEPAM) 1 Mg Tab, 1 MG PO Q8H, TAB 05/08/17 Dexamethasone (DEXAMETHASONE) 1 Mg Tab, 0.5 MG PO PRN, TAB 01/13/15 Lacosamide (VIMPAT) 100 Mg Tab, 50 MG PO BID, TAB 08/14/14 Past Medical/Surgical History Brain mass with craniotomy x2 and radiation. Hx Smoking: No Smoking Status: Former Smoker Hx Substance Use Disorder: Yes (UNKNOWN) Hx Alcohol Use: Yes (OCCASIONALLY) Constitutional Vital Sign - Last 24 Hours 09/18/17 09/18/17 09/18/17 09/18/17 11:42 11:42 11:50 12:00 Temp 98.1 Pulse 72 65 Resp 16 13 B/P (MAP) 128/73 (91) 128/73 130/65 (86) Pulse Ox 93 91 09/18/17 09/18/17 09/18/17 09/18/17 12:05 12:10 12:25 12:53 Pulse 69 57 56 B/P (MAP) 118/68 (85) Pulse Ox 94 91 95 09/18/17 09/18/17 09/18/17 09/18/17 12:55 13:00 13:10 13:15 Pulse 51 64 48 Resp 23 11 B/P (MAP) 125/58 (80) Pulse Ox 93 94 94 Physical Exam Physical Examination: General: 46-year-old male in no acute distress HEENT: cranial nerves grossly intact, normocephalic, atraumatic, pupils equal, round, and reactive to light and accommodation bilaterally, TMs violette lilly without effusion bilaterally Respiratory: BL equal respiratory excursion, CTA BL Cardiovascular: Clear S1 S2, murmurs GI: normoactive BSx4, no tenderness to palpation, left sided CVA tenderness Musculoskeletal: full free ROM of the neck, trunk, and extremities Differential Diagnoses Considered: kidney stone, pancreatitis, musculoskeletal stain, and shingles Medical Decision Making Data Points Result Diagram: 09/18/17 1228 09/18/17 1228 Laboratory Hematology Test 09/18/17 12:28 09/18/17 12:32 Red Blood Count 4.83 M/uL (4.00-5.60) Mean Corpuscular Volume 88.9 fL (80.0-96.0) Mean Corpuscular Hemoglobin 31.5 pg (26.0-33.0) Mean Corpuscular Hemoglobin Concent 35.4 g/dL (32.0-36.0) Red Cell Distribution Width 13.1 % (11.5-14.5) Mean Platelet Volume 8.1 fL (7.2-11.1) Neutrophils (%) (Auto) 68.7 % (39.4-72.5) Lymphocytes (%) (Auto) 20.8 % (17.6-49.6) Monocytes (%) (Auto) 8.1 % (4.1-12.4) Eosinophils (%) (Auto) 1.7 % (0.4-6.7) Basophils (%) (Auto) 0.7 % (0.3-1.4) Nucleated RBC Relative Count (auto) 0.0 /100WBC Neutrophils # (Auto) 4.7 K/uL (2.0-7.4) Lymphocytes # (Auto) 1.4 K/uL (1.3-3.6) Monocytes # (Auto) 0.6 K/uL (0.3-1.0) Eosinophils # (Auto) 0.1 K/uL (0.0-0.5) Basophils # (Auto) 0.0 K/uL (0.0-0.1) Nucleated RBC Absolute Count (auto) 0.00 K/uL Erythrocyte Sedimentation Rate 1 mm/HOUR (0-15) Sodium Level 140 mmol/L (137-145) Potassium Level 3.6 mmol/L (3.5-5.0) Chloride Level 105 mmol/L (98-107) Carbon Dioxide Level 23 mmol/L (22-30) Blood Urea Nitrogen 15 mg/dl (9-21) Creatinine 1.10 mg/dl (0.66-1.25) Glomerular Filtration Rate Calc > 60.0 Random Glucose 106 mg/dl (75-110) Calcium Level 8.7 mg/dl (8.4-10.2) Total Bilirubin 0.7 mg/dl (0.2-1.3) Aspartate Amino Transf (AST/SGOT) 45 U/L (0-35) Alanine Aminotransferase (ALT/SGPT) 92 U/L (0-56) Alkaline Phosphatase 83 U/L (0-126) C-Reactive Protein < 0.5 mg/dl (<1.0) Total Protein 6.7 g/dl (6.3-8.2) Albumin 3.8 g/dl (3.5-5.0) Amylase Level 68 U/L (0-110) Lipase 154 U/L (23-300) Urine Color Straw Urine Clarity Clear Urine pH 7.0 pH (4.8-9.5) Urine Specific [place] 1.008 Urine Protein Negative mg/dL (NEGATIVE) Urine Glucose (UA) Negative mg/dL (NEGATIVE) Urine Ketones Negative mg/dL (NEGATIVE) Urine Blood Negative (NEGATIVE) Urine Nitrite Negative (NEGATIVE) Urine Bilirubin Negative (NEGATIVE) Urine Urobilinogen Negative mg/dL (0.2-1.9) Urine Leukocyte Esterase Negative (NEGATIVE) Urine RBC None /HPF (0-2/HPF) Urine WBC None /HPF (0-5/HPF) Urine Squamous Epithelial Cells None /LPF (</=FEW) Urine Transitional Epithelial Cells Few /LPF (NONE-FEW) Urine Bacteria Negative /HPF (NONE-FEW) Urine Mucus None /HPF (NONE-FEW) Chemistry Test 09/18/17 12:28 09/18/17 12:32 White Blood Count 6.8 k/uL (4.5-11.0) Red Blood Count 4.83 M/uL (4.00-5.60) Hemoglobin 15.2 g/dL (14.0-18.0) Hematocrit 42.9 % (42.0-52.0) Mean Corpuscular Volume 88.9 fL (80.0-96.0) Mean Corpuscular Hemoglobin 31.5 pg (26.0-33.0) Mean Corpuscular Hemoglobin Concent 35.4 g/dL (32.0-36.0) Red Cell Distribution Width 13.1 % (11.5-14.5) Platelet Count 230 K/uL (150-450) Mean Platelet Volume 8.1 fL (7.2-11.1) Neutrophils (%) (Auto) 68.7 % (39.4-72.5) Lymphocytes (%) (Auto) 20.8 % (17.6-49.6) Monocytes (%) (Auto) 8.1 % (4.1-12.4) Eosinophils (%) (Auto) 1.7 % (0.4-6.7) Basophils (%) (Auto) 0.7 % (0.3-1.4) Nucleated RBC Relative Count (auto) 0.0 /100WBC Neutrophils # (Auto) 4.7 K/uL (2.0-7.4) Lymphocytes # (Auto) 1.4 K/uL (1.3-3.6) Monocytes # (Auto) 0.6 K/uL (0.3-1.0) Eosinophils # (Auto) 0.1 K/uL (0.0-0.5) Basophils # (Auto) 0.0 K/uL (0.0-0.1) Nucleated RBC Absolute Count (auto) 0.00 K/uL Erythrocyte Sedimentation Rate 1 mm/HOUR (0-15) Glomerular Filtration Rate Calc > 60.0 Calcium Level 8.7 mg/dl (8.4-10.2) Total Bilirubin 0.7 mg/dl (0.2-1.3) Aspartate Amino Transf (AST/SGOT) 45 U/L (0-35) Alanine Aminotransferase (ALT/SGPT) 92 U/L (0-56) Alkaline Phosphatase 83 U/L (0-126) C-Reactive Protein < 0.5 mg/dl (<1.0) Total Protein 6.7 g/dl (6.3-8.2) Albumin 3.8 g/dl (3.5-5.0) Amylase Level 68 U/L (0-110) Lipase 154 U/L (23-300) Urine Color Straw Urine Clarity Clear Urine pH 7.0 pH (4.8-9.5) Urine Specific [place] 1.008 Urine Protein Negative mg/dL (NEGATIVE) Urine Glucose (UA) Negative mg/dL (NEGATIVE) Urine Ketones Negative mg/dL (NEGATIVE) Urine Blood Negative (NEGATIVE) Urine Nitrite Negative (NEGATIVE) Urine Bilirubin Negative (NEGATIVE) Urine Urobilinogen Negative mg/dL (0.2-1.9) Urine Leukocyte Esterase Negative (NEGATIVE) Urine RBC None /HPF (0-2/HPF) Urine WBC None /HPF (0-5/HPF) Urine Squamous Epithelial Cells None /LPF (</=FEW) Urine Transitional Epithelial Cells Few /LPF (NONE-FEW) Urine Bacteria Negative /HPF (NONE-FEW) Urine Mucus None /HPF (NONE-FEW) Urinalysis Test 09/18/17 12:32 Urine Color Straw Urine Clarity Clear Urine pH 7.0 pH (4.8-9.5) Urine Specific [place] 1.008 Urine Protein Negative mg/dL (NEGATIVE) Urine Glucose (UA) Negative mg/dL (NEGATIVE) Urine Ketones Negative mg/dL (NEGATIVE) Urine Blood Negative (NEGATIVE) Urine Nitrite Negative (NEGATIVE) Urine Bilirubin Negative (NEGATIVE) Urine Urobilinogen Negative mg/dL (0.2-1.9) Urine Leukocyte Esterase Negative (NEGATIVE) Urine RBC None /HPF (0-2/HPF) Urine WBC None /HPF (0-5/HPF) Urine Squamous Epithelial Cells None /LPF (</=FEW) Urine Transitional Epithelial Cells Few /LPF (NONE-FEW) Urine Bacteria Negative /HPF (NONE-FEW) Urine Mucus None /HPF (NONE-FEW) EKG/Imaging EKG Interpretation 12 lead EKG: Rhythm: Sinus bradycardia with sinus arrhythmia, ventricular rate of 54 bpm [place]: normal QRS: Incomplete right bundle branch block ST segments: normal Imaging Exam type: LUMBAR SPINE 4 VIEWS History: BACK PAIN Comparison: None. Findings: There are five nonrib-bearing lumbar-type vertebral bodies present. There is mild loss of height of the L1 vertebral body of indeterminate age. No Subluxations. Small anterior osteophytes are seen at L1, L3 and L4. IMPRESSION: 1. Mild spondylotic changes of lumbar spine Mild loss of height of the L1 vertebral body of indeterminate age although likely old due to anterior osteophytes Report Dictated By: Nichelle Valdez MD at 09/18/2017 1:45 PM Report E-Signed By: Nichelle Valdez MD at 09/18/2017 1:46 PM ABDOMEN/PELVIS WITH CONTRAST HISTORY: Left-sided flank pain, history of cancer TECHNIQUE: Following administration of IV contrast contiguous axial images acquired through the abdomen/pelvis. Coronal and sagittal reformatting also performed. Dose Lowering Technique One of the following dose optimization techniques was utilized in the performance of this exam: Automated exposure control; adjustment of the mA and/ or kV according to the patient's size; or use of an iterative reconstruction technique. Specific details can be referenced in the facility's radiology CT exam operational policy. CONTRAST: 75 mL Isovue-370 COMPARISON: None. FINDINGS: Visualized lung bases: Negative. Hepatobiliary: Gallbladder is contracted which may be related to a recent meal Spleen: Negative. Adrenals: Negative. Pancreas: Negative. Kidneys ureters or bladder: There is a 2 mm nonobstructing calculus mid pole calyx of the left kidney Genitalia: Negative. GI: There are very subtle infiltrative changes seen in the pericolonic fat in the descending colon. The bowel wall does not appear thickened although this could be related to very subtle diverticulitis. Vessels/spaces/nodes: Negative. Bones/soft tissues: Small left inguinal hernia containing fat. Mild spondylotic changes of the thoracolumbar spine. Sclerotic density in the intratrochanteric region of the right hip and just above the left acetabulum which may simply represent bone islands Additional findings: None pertinent. IMPRESSION: 2 mm nonobstructing calculus mid pole calyx of the left kidney Gallbladder is contracted which could be related to a recent meal. Correlation with meal history needed Small left inguinal hernia containing fat Subtle infiltrative changes seen in the pericolonic fat in the descending colon. The bowel wall does not appear thickened although this could be related to very subtle diverticulitis. Squatted density in the intratrochanteric region the right hip and just above the left acetabulum which may simply represent bone islands. If bone metastases are of strong clinical concern a bone scan may be helpful Report Dictated By: Nichelle Valdez MD at 09/18/2017 1:47 PM Report E-Signed By: Nichelle Valdez MD at 09/18/2017 1:54 PM ED Course/Re-evaluation ED Course Patient was admitted and examined, history and physical were obtained. Differential diagnoses were considered. On examination patient has some tenderness to the left side. He described the pain as burning. A urinalysis, CBC and CMP were done. Next was the lumbar spine. The results of the labs and the imaging were negative. A CT scan of the abdomen and pelvis was done. 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 Patient requested that he be discharged after CT scan and contacted with the results. I informed him that we find. When I have the results of the CT scan did show the patient does have some developing inflammation along the descending colon consistent with a diverticulitis, as well as a 2 mm stone in the kidney. I believe the pain is likely related to the developing diverticulitis. We'll go ahead and start him on Cipro and Flagyl. He is to follow-up with his primary care provider in the next week. He is return to emergency room if condition worsens. Patient verbalized understanding and agreement. Decision to Disposition Date: Sep 18, 2017 Decision to Disposition Time: 13:36 Depart Departure Latest Vital Signs Vital Signs Date Time Temp Pulse Resp B/P (MAP) Pulse Ox O2 Delivery O2 Flow Rate FiO2 09/18/17 13:15 48 11 94 09/18/17 13:00 125/58 (80) 09/18/17 11:42 98.1 Impression: Primary Impression: Left flank pain Condition: Improved Disposition: HOME OR SELF-CARE Referrals: SEEMA BEEBE MD (PCP) New Scripts Ciprofloxacin Hcl (CIPROFLOXACIN HCL) 500 Mg Tablet 500 MG PO Q12H, #20 TAB Prov: ALFA TATUM 09/18/17 Metronidazole (FLAGYL) 500 Mg Tablet 500 MG PO TID, #30 TAB Prov: ALFA TATUM 09/18/17 Patient Instructions: Flank Pain (ED) Additional Instructions: We will call with the results of your CT of your abdomen. Follow up with your primary care provider within the next week. Monitor for any development of a rash on your flank and notify your primary care provider. Return to the ER if your condition worsens. ALFA TATUM Sep 18, 2017 12:09
[2017-09-18 12:35] LABS: PLATELET COUNT, AUTOMATED 230 K/uL (150-450)
--- NOTE | 2017-09-18 12:42 | EKG ---
FACILITY: [facility] [place] PATIENT NAME: ADILENE FORD : [id number] MR: [id number] V: [id number] EXAM DATE: ORDERING PHYSICIAN: ALFA TATUM TECHNOLOGIST: GUILLERMO Garza Reason : LEFT FLANK PAIN Blood Pressure : / mmHG Vent. Rate : 054 BPM Atrial Rate : 054 BPM P-R Int : 186 ms QRS Dur : 116 ms QT Int : 426 ms P-R-T Axes : 027 -01 014 degrees QTc Int : 403 ms Sinus bradycardia with sinus arrhythmia Incomplete right bundle branch block Nonspecific ST-T abnormalities When compared with ECG of 03-SEP-2017 15:34, Vent. rate has decreased BY 70 BPM Confirmed by PARRISH LAZARO ([id number]) on 09/19/2017 11:13:02 AM Referred By: DEEPTI Confirmed By:PARRISH LAZARO
[2017-09-18 13:00] VITALS: BP 125/58
[2017-09-18] MEDS ORDERED: IOPAMIDOL 76% 75 ML INFUS BTL 75 ML ONE (13:27)
--- NOTE | 2017-09-18 13:50 | RADIOLOGY IMAGING REPORT ---
FACILITY: [facility] [place] PATIENT NAME: Milli Ram : 1970 MR: [id number] V: [id number] EXAM DATE: ORDERING PHYSICIAN: ALFA TATUM TECHNOLOGIST: Location: [facility] Patient: Milli Ram : 1970 Visit/Account:[id number] Date of Sevice: 09/18/2017 Exam type: LUMBAR SPINE 4 VIEWS History: BACK PAIN Comparison: None. Findings: There are five nonrib-bearing lumbar-type vertebral bodies present. There is mild loss of height of the L1 vertebral body of indeterminate age. No Subluxations. Small anterior osteophytes are seen at L1, L3 and L4. IMPRESSION: 1. Mild spondylotic changes of lumbar spine Mild loss of height of the L1 vertebral body of indeterminate age although likely old due to anterior osteophytes Report Dictated By: Nichelle Valdez MD at 09/18/2017 1:45 PM Report E-Signed By: Nichelle Valdez MD at 09/18/2017 1:46 PM WSN:[email or web address]
--- NOTE | 2017-09-18 13:59 | RADIOLOGY IMAGING REPORT ---
FACILITY: [facility] PATIENT NAME: Milli Ram : 1970 MR: [id number] V: [id number] EXAM DATE: ORDERING PHYSICIAN: ALFA TATUM TECHNOLOGIST: Location: [facility] [place] Patient: Milli Ram : 1970 Visit/Account:[id number] Date of Sevice: 09/18/2017 ABDOMEN/PELVIS WITH CONTRAST HISTORY: Left-sided flank pain, history of cancer TECHNIQUE: Following administration of IV contrast contiguous axial images acquired through the abdom en/pelvis. Coronal and sagittal reformatting also performed. Dose Lowering Technique One of the following dose optimization techniques was utilized in the performance of this exam: Autom ated exposure control; adjustment of the mA and/or kV according to the patient's size; or use of an i terative reconstruction technique. Specific details can be referenced in the facility's radiology C T exam operational policy. CONTRAST: 75 mL Isovue-370 COMPARISON: None. FINDINGS: Visualized lung bases: Negative. Hepatobiliary: Gallbladder is contracted which may be related to a recent meal Spleen: Negative. Adrenals: Negative. Pancreas: Negative. Kidneys ureters or bladder: There is a 2 mm nonobstructing calculus mid pole calyx of the left kidney Genitalia: Negative. GI: There are very subtle infiltrative changes seen in the pericolonic fat in the descending colon. The bowel wall does not appear thickened although this could be related to very subtle diverticuliti s. Vessels/spaces/nodes: Negative. Bones/soft tissues: Small left inguinal hernia containing fat. Mild spondylotic changes of the thor acolumbar spine. Sclerotic density in the intratrochanteric region of the right hip and just above t he left acetabulum which may simply represent bone islands Additional findings: None pertinent. IMPRESSION: 2 mm nonobstructing calculus mid pole calyx of the left kidney Gallbladder is contracted which could be related to a recent meal. Correlation with meal history nee ded Small left inguinal hernia containing fat Subtle infiltrative changes seen in the pericolonic fat in the descending colon. The bowel wall does not appear thickened although this could be related to very subtle diverticulitis. Squatted density in the intratrochanteric region the right hip and just above the left acetabulum whi ch may simply represent bone islands. If bone metastases are of strong clinical concern a bone scan may be helpful Report Dictated By: Nichelle Valdez MD at 09/18/2017 1:47 PM Report E-Signed By: Nichelle Valdez MD at 09/18/2017 1:54 PM WSN:[id number]
[2017-09-18] MEDS ORDERED: METR-1 PO (17:45)
[2017-09-18] MEDS ORDERED: CIPR-214 PO (17:45)
== END 2017-09-18 13:42 | disposition home or self-care (01) ==
LOC: ER 11:35
DX: N20.0 Calculus of kidney (principal); K40.90 Unilateral inguinal hernia, without obstruction or gangrene, not specified as recurrent; R00.1 Bradycardia, unspecified; I45.10 Unspecified right bundle-branch block
CPT/HCPCS: 36415; 72120; 74177; 81001; 82150; 83690; 85025; 85651; 86140; 93005; 99284; Q9967; 82040; 82247; 82310; 82374; 82435; 82565; 82947; 84075; 84132; 84155; 84295; 84450; 84460; 84520

== ENCOUNTER 2017-12-10 07:19 | Emergency (ER) | payer MEDICARE, MEDICAID ==
[2017-05-09 08:32] VITALS: Wt 122.2 kg
[~2017-12-10 07:19] MED LIST changes: +B VITAMIN; +CIPR-214 PO; +CREATINE; +METR-1 PO; +[UNRECOGNIZED DRUG - REMARK]
--- NOTE | 2017-12-10 07:42 | ER Report ---
History and Physical Time Seen By MD: 07:26 HPI/ROS CHIEF COMPLAINT: Pain to right bicep. HISTORY OF PRESENT ILLNESS: Patient is postop day #4 from a left biceps/ulnar tendon repair. This was performed at [facility] by Dr Schwartz. Injury initially occurred from weight lifting and patient ended up with a "ulnar tendon tear" this morning patient states that he was waking up and was doing a stretch and felt severe pain and a pop to the antecubital fossa of the left elbow. Patient is not currently taking any pain medications. Patient does have a past medical history for brain mass status post resection as well as history of seizures. Patient presents in a bulky plaster splint that is approximately 45 a ngulation REVIEW OF SYSTEMS: Constitutional: No fever, no chills. Musculoskeletal: Left elbow pain Skin: No rashes. Neurological: No headache. Allergies: Coded Allergies: No Known Allergies (Verified Allergy, Mild, 12/10/17) Home Meds Active Scripts Ciprofloxacin Hcl (CIPROFLOXACIN HCL) 500 Mg Tablet, 500 MG PO Q12H, #20 TAB Prov:ALFA TATUM [facility] 09/18/17 Metronidazole (FLAGYL) 500 Mg Tablet, 500 MG PO TID, #30 TAB Prov:ALFA TATUM [facility] 09/18/17 Reported Medications [synthetic protien] No Conflict Check 09/18/17 [creatine] No Conflict Check 09/18/17 [b vitamin] No Conflict Check 09/18/17 Lorazepam (LORAZEPAM) 1 Mg Tab, 1 MG PO Q8H, TAB 05/08/17 Dexamethasone (DEXAMETHASONE) 1 Mg Tab, 0.5 MG PO PRN, TAB 01/13/15 Lacosamide (VIMPAT) 100 Mg Tab, 50 MG PO BID, TAB 08/14/14 Past Medical/Surgical History Past medical history for brain mass status post resection, patient postop day #4 from a "ulnar tendon repair" to the left elbow Hx Smoking: No Smoking Status: Former Smoker Hx Substance Use Disorder: Yes (UNKNOWN) Hx Alcohol Use: Yes (OCCASIONALLY) Constitutional Vital Sign - Last 24 Hours 12/10/17 07:24 Temp 97.5 Pulse 79 Resp 18 Pulse Ox 95 O2 Delivery Room Air Physical Exam General appearance: Alert no distress. Respiratory: Chest is non tender, lungs are clear to auscultation. Cardiac: Regular rate and rhythm In order to examine the patient required that I take down his splint. Patient has surgical sites to the antecubital fossa as well as the proximal forearm ulnar aspect all sites appear clean dry and intact there is no evidence of purulent discharge or erythema. I did not have the patient perform any range of motion. Capillary refill to the fingers is brisk. Examination of the /Left hand reveals no acute deformity. The patient is able to give a thumbs up sign, is able to make an okay sign, and is able to AB duct the fingers. Sensation is intact over the dorsal 1st web space, the volar aspect of the 2nd finger, and the volar aspect of the 5th finger. Capillary refill is brisk. There is ecchymosis to the proximal antecubital fossa which is where the site is tender and the patient is complaining of pain Medical Decision Making ED Course/Re-evaluation ED Course 12/10/2017 7:42:37 am concern at this time is for a possible postop complication secondary to his surgery. We will keep the patient immobile however we will perform a noncontrast MRI of the left upper extremity to look for any type of tendon tear or injury. Patient was offered pain medication which he declined. 12/10/2017 11:23:32 am I've called and left a message with and am awaiting callback. Patient initially was unable to tolerate the MRI secondary to pain however after given 1 Percocet he is now been returned to MRI and complete the study I am awaiting the official results. Upon returning from MRI the patient's original splint was reapplied. 12/10/2017 12:15:52 pm this speak with Dr. Schwartz; who confirms the patient did have surgery and it was actually a biceps tendon repair which seems to make more sense with the patient's history and physical exam. He was made aware the patient had an MRI today the results are pending. I did provide Dr. Schwartz with the contact number for [facility] radiology so he can look at the images himself. I explained the patient was resplinted and will call for follow up with him. He had no further suggestions or concerns at this time. Decision to Disposition Date: Dec 10, 2017 Decision to Disposition Time: 12:17 Depart Departure Latest Vital Signs Vital Signs Date Time Temp Pulse Resp B/P (MAP) Pulse Ox O2 Delivery O2 Flow Rate FiO2 9/4/18 07:24 97.5 79 18 95 Room Air Impression: Primary Impression: Post-op pain Condition: Improved Disposition: HOME OR SELF-CARE Referrals: SEEMA BEEBE MD (PCP) Patient Instructions: Pain Management After Surgery (DC) Additional Instructions: Still awaiting MRI official read as well as orthopedic follow-up phone call. At this time since there does not appear to be anything we need to do the emergency department and patient is resplinted we will discharge home. He was offered pain medication but he states that he R to have some. I will call The Patient at [phone] with MRI Results and Recommendations for Follow-Up. They Have No Questions or Concerns at Time of Disposition. Wear your splint until cleared by orthopedics. YOLY MIRELES MD Dec 10, 2017 07:42
--- NOTE | 2017-12-10 12:57 | RADIOLOGY IMAGING REPORT ---
FACILITY: [facility] PATIENT NAME: Milil Ram : 1970 MR: [id number] V: [id number] EXAM DATE: ORDERING PHYSICIAN: YOLY MIRELES TECHNOLOGIST: Location: [facility] Patient: Milli Ram : 1970 Visit/Account:[id number] Date of Sevice: 12/10/2017 MRI left elbow Indication: Postop. Pain. Comparison: None available. Technique: Multiplanar multisequence MR images of the left elbow were obtained. Findings: There are several foci susceptibility artifact adjacent to the region of the radial tubercle. There i s evidence of a full-thickness tear of the distal biceps tendon noted best on image 8 of the axial se enid as well as image 13 of the sagittal series with approximately 7 cm of proximal retraction of the torn biceps tendon. There is also moderate intramuscular edema of the visualized biceps near the mus culotendinous junction and within the muscle related to muscle strain. Moderate amount of edema surro unds the muscle as well. No acute fracture or dislocation. There is mild tendinopathy and partial tearing of the common extensor origin. The common flexor origi n is intact as well as the medial and lateral collateral ligaments of the elbow. Moderate subcutaneous edema prominent along the posterior and the posterior lateral and posterior med ial aspect of the elbow. There is moderate muscle strain/reactive muscle edema in the region of the supinator muscle. IMPRESSION: 1. Evidence of complete tear of the biceps tendon with significant proximal retraction as above with postsurgical changes also noted. 2. Partial tearing tendinopathy common extensor origin. Report Dictated By: Ozzy Hein MD at 12/10/2017 11:40 AM Report E-Signed By: Ozzy Hein MD at 12/10/2017 12:53 PM WSN:[id number]
== END 2017-12-10 12:14 | disposition home or self-care (01) ==
LOC: ER 07:30
DX: G89.18 Other acute postprocedural pain (principal)
CPT/HCPCS: 73221; 99283; A9270

== ENCOUNTER 2018-10-29 17:08 | Emergency (ER) | payer MEDICARE, MEDICAID ==
[2017-05-09 08:32] VITALS: Wt 120.7 kg
[~2018-10-29 17:08] MED LIST changes: -LORA-1455 PO
--- NOTE | 2018-10-29 17:09 | ER Report ---
History and Physical Time Seen By MD: 17:06 (MARJAN HENRY DO) HPI/ROS CHIEF COMPLAINT: had aura of a seizure HISTORY OF PRESENT ILLNESS: Pt has hx of brain cancer, glioblastoma, and had radiation and craniotomy. 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 Pt last seizure was approx 5 months ago per mom. Pt does feel seizures coming on and usually is able to stop them by taking ativan. Pt states severe changes in weather often will make them come or flashing lights. Pt was in [facility] and the weather outside and the lights in [facility] were bothering him. PT states he felt a twitch in his left lip and some head pressure which usually means he may seize. Pt sat down and took ativan 3 1mg pills. [employer] called 911. Pt did not have a seizure. Pts mom is with him currently. Pt states he has not been sick. no new meds. PT is on Vimpat bid and has not had any changes recently. Pt is on ativan prn and also dexamethasone prn. He states he takes the atvian if he feels a seizure coming on and uses decadron if he feels head pressure. Pt has not used the decadron recently. Mom states "we probably wou ld not have come today but it occurred in [facility] so they called 911" Pt is due to see neuro oncologist, Dr. Beebe in december REVIEW OF SYSTEMS: Constitutional: No fever, no chills. Eyes: No discharge. ENT: No sore throat. Cardiovascular: No chest pain, no palpitations. Respiratory: No cough, no shortness of breath. Gastrointestinal: No abdominal pain, no vomiting. Genitourinary: No hematuria. Musculoskeletal: No back pain. Skin: No rashes. Neurological: + headache, + twitching lip (LINDSAYSIMACARRIMARJAN V DO) Allergies: Coded Allergies: levetiracetam (Verified Allergy, Unknown, HALLUCINATIONS, 10/29/18) makes me mean phenytoin (Verified Allergy, Unknown, UNKNOWN, 10/29/18) seizures Home Meds Active Scripts Lorazepam (ATIVAN) 0.5 Mg Tablet, 4 MG PO Q4-6H PRN for SEIZURE, #40 TAB 0 Refills Prov:MARYSE GARCIA MD 10/29/18 Ciprofloxacin 500 Mg Tab (CIPROFLOXACIN 500 MG TAB) 500 Mg Tablet, 500 MG PO Q12H, #20 TAB Prov:ALFA TATUM [employer] [employer] 09/18/17 Metronidazole (FLAGYL) 500 Mg Tablet, 500 MG PO TID, #30 TAB Prov:ALFA TATUM [facility] 09/18/17 Reported Medications [synthetic protien] No Conflict Check 09/18/17 [creatine] No Conflict Check 09/18/17 [b vitamin] No Conflict Check 09/18/17 Lorazepam (LORAZEPAM) 1 Mg Tab, 1 MG PO Q8H, TAB 05/08/17 Dexamethasone (DEXAMETHASONE) 1 Mg Tab, 0.5 MG PO PRN, TAB 01/13/15 Lacosamide (VIMPAT) 100 Mg Tab, 50 MG PO BID, TAB 08/14/14 Past Medical/Surgical History Pmhx and pshx: glioblastoma, craniotomy, nonepileptic seizures, right hand fracture, chemotherapy (MARJAN HENRY DO) Reviewed Nurses Notes: Yes Old Medical Records Reviewed: Yes (MARJAN HENRY DO) Hx Smoking: No Smoking Status: Former Smoker Hx Substance Use Disorder: Yes (UNKNOWN) Hx Alcohol Use: Yes (OCCASIONALLY) (MARJAN HENRY DO) Constitutional Vital Sign - Last 24 Hours 10/29/18 10/29/18 10/29/18 10/29/18 17:08 17:19 17:22 17:30 Temp 98.2 Pulse 128 78 Resp 18 B/P (MAP) 123/66 (85) 123/66 112/48 (69) Pulse Ox 95 10/29/18 10/29/18 10/29/18 10/29/18 17:38 17:47 18:08 18:17 Pulse 122 122 Resp 15 B/P (MAP) 133/89 (104) 115/64 (81) Pulse Ox 94 10/29/18 20:15 B/P (MAP) 126/62 (83) Pulse Ox 95 (MARYSE GARCIA MD) Physical Exam General Appearance: The patient is alert, has no immediate need for airway protection and no signs of toxicity. Eyes: Pupils equal and round no pallor or injection, EOMI ENT: no pharyngeal erythema or exudates, Mucous membranes are moist, TM are nl b/l Respiratory: There are no retractions, lungs are clear to auscultation. Cardiovascular: Regular rate and rhythm. pulses are equal and symmetrical Gastrointestinal: Abdomen is soft and non tender, no masses, bowel sounds normal, no guarding, no rigidity or rebound Neurological: Cranial nerves II-XII grossly intact, no sensory or motor loss Skin: Warm and dry, no rashes. Musculoskeletal: Neck is supple non tender, no vertebral tenderness Extremities are nontender, nonswollen and have full range of motion. DIFFERENTIAL DIAGNOSIS: After history and physical exam differential diagnosis was considered for electrolyte abnormality, dehydration, (LAURORA,MARJAN V DO) Medical Decision Making Data Points Result Diagram: 10/29/18 1717 10/29/18 1717 Laboratory Hematology Test 10/29/18 17:17 White Blood Count 7.4 k/uL (4.5-11.0) Red Blood Count 5.19 M/uL (4.00-5.60) Hemoglobin 16.0 g/dL (14.0-18.0) Hematocrit 46.8 % (42.0-52.0) Mean Corpuscular Volume 90.2 fL (80.0-96.0) Mean Corpuscular Hemoglobin 30.8 pg (26.0-33.0) Mean Corpuscular Hemoglobin Concent 34.1 g/dL (32.0-36.0) Red Cell Distribution Width 13.0 % (11.5-14.5) Platelet Count 243 K/uL (150-450) Mean Platelet Volume 8.2 fL (7.2-11.1) Neutrophils (%) (Auto) 55.7 % (39.4-72.5) Lymphocytes (%) (Auto) 32.0 % (17.6-49.6) Monocytes (%) (Auto) 8.8 % (4.1-12.4) Eosinophils (%) (Auto) 2.6 % (0.4-6.7) Basophils (%) (Auto) 0.9 % (0.3-1.4) Nucleated RBC Relative Count (auto) 0.2 /100WBC Neutrophils # (Auto) 4.1 K/uL (2.0-7.4) Lymphocytes # (Auto) 2.4 K/uL (1.3-3.6) Monocytes # (Auto) 0.7 K/uL (0.3-1.0) Eosinophils # (Auto) 0.2 K/uL (0.0-0.5) Basophils # (Auto) 0.1 K/uL (0.0-0.1) Nucleated RBC Absolute Count (auto) 0.01 K/uL Chemistry Test 10/29/18 17:17 Sodium Level 139 mmol/L (137-145) Potassium Level 3.6 mmol/L (3.5-5.0) Chloride Level 104 mmol/L (98-107) Carbon Dioxide Level 23 mmol/L (22-30) Blood Urea Nitrogen 18 mg/dl (9-21) Creatinine 1.50 mg/dl (0.66-1.25) Glomerular Filtration Rate Calc 50.2 Random Glucose 98 mg/dl (75-110) Calcium Level 9.5 mg/dl (8.4-10.2) Total Bilirubin 0.7 mg/dl (0.2-1.3) Aspartate Amino Transf (AST/SGOT) 56 U/L (0-35) Alanine Aminotransferase (ALT/SGPT) 79 U/L (0-56) Alkaline Phosphatase 117 U/L (0-126) Total Protein 7.9 g/dl (6.3-8.2) Albumin 4.6 g/dl (3.5-5.0) ([facility] MD) EKG/Imaging Imaging Head CT scan without contrast HISTORY: Seizure, history of brain malignancy COMPARISONS: September 03, 2017 TECHNIQUE: Non-contrast head CT was performed with sagittal and coronal reformations. One of the following dose optimization techniques was utilized in the performance of this exam: automated exposure control; adjustment of the mA and/or kV according to patient size; or use of iterative reconstruction technique. Specific details can be referenced in the facility's radiology CT exam operational policy. FINDINGS: The basal cisterns and convexity sulci are maintained. No hydrocephalus or midline shift. Unchanged white matter hypoattenuation in the right parietal and right posterior temporal region with adjacent unchanged craniotomy. Approximate 4 mm hyperdensity in the medial right parietal region is new, second acquisition image 7. Right craniotomy postsurgical change as before. Right parietal and right occipital osseous lucencies have increased in size, first acquisition images 55 and 42 measuring up to 1.3 cm. IMPRESSION: 1. New nonspecific 4 mm medial right parietal region cortical versus CSF space hyperdensity. This may represent a chronic cortical calcification (related to prior treatment, inflammation or ischemia) which is new compared to prior. Acute to subacute subarachnoid hemorrhage is felt less likely but cannot be entirely excluded. A thrombosed cortical vein could appear similarly however this is felt less likely as well. Recommend follow-up head CT in 12 to 24 hours to document stability. 2. Unchanged right temporoparietal white matter hypoattenuation in keeping with gliosis, residual tumor or a combination of the two. 3. Right parietal and right occipital skull osseous lucencies have increased in size measuring up to 1.3 cm. These may represent benign atypical hemangiomas or venous lakes. Malignant/metastatic lesions cannot be entirely excluded given in terval change. Whole-body bone scan may be warranted to exclude metastatic/malignant disease within the remainder of the skeleton. CT follow-up may be warranted to document stability in 2-3 months. Results were called to Dr. Garcia on 10/29/2018 6:57 PM. Report Dictated By: Dandre Fitzpatrick MD at 10/29/2018 6:39 PM (MARYSE GARCIA MD) ED Course/Re-evaluation Clinical Indication for ER IV: Hydration, IV Access ED Course 10/29/2018 5:46:33 pm PT had grand mal seizure in ED, lasting 1minute. Ativan 2mg IV was given. will order head CT. 10/29/2018 5:47:58 pm Pts labs are back show mild dehydration but are otherwise stable. Labs were drawn prior to pts seizure in the emergency room. PT was reexamined post seizure. Pt had normal fundoscopic exam. Pt is postictal and unable to follow commands. Will continue to monitor. Will send pt to CT as well. 10/29/2018 6:02:38 pm Signed out to Dr. Garcia Decision to Disposition Date: Oct 29, 2018 (MARJAN HENRY DO) ED Course I reviewed this patient at shift change with Dr Henry and assumed care. The patient is feeling better, a little groggy but better. CT scan results back, showing a new hyperdense area of 4mm, uncertain etiology, see report above. Discussed with the patient and his mother, and then called and discussed with neurology at [facility]. Dr. Panda was the neurologist on and was able to access the patient's records. They will make arrangements for the patient to come there tomorrow for re-evaluation and reimaging. Will continue Ativan. Patient is not using the steroids much, last use was 2 days ago and then a few weeks befor that, only use associated with wide swings in barometric pressure that cause increased pressure in his head. We originally thought he was on Vimpat 50mg twice a day, but after further questioning, he is taking a full 100mg tablet twice a day and will continue this. Also discussed whether the patient would want to return home and follow-up tomorrow, be admitted for observation and further studies tomorrow either here or in [place], and the risks/benefits of each. He prefers at this time to return home and follow-up with neurology tomorrow. Decision to Disposition Date: Oct 29, 2018 Decision to Disposition Time: 20:11 (MARYSE GARCIA MD) Depart Departure Latest Vital Signs Vital Signs Date Time Temp Pulse Resp B/P (MAP) Pulse Ox O2 Delivery O2 Flow Rate FiO2 10/29/18 20:15 126/62 (83) 95 10/29/18 18:08 122 10/29/18 17:38 15 10/29/18 17:22 98.2 (MARYSE GARCIA MD) Impression: Primary Impression: Grand mal seizure Additional Impression: Dehydration Condition: Improved Disposition: HOME OR SELF-CARE Referrals: SEEMA BEEBE MD (PCP) New Scripts Lorazepam (ATIVAN) 0.5 Mg Tablet 4 MG PO Q4-6H PRN for SEIZURE, #40 TAB 0 Refills Prov: MARYSE GARCIA MD 10/29/18 Additional Instructions: Please call Dr. Beebe's office tomorrow. Dr. Panda indicated that they would like to have you come down tomorrow for re-evaluation and need for repeat imaging. Keep taking your Vimpat 100mg twice a day. You can use the Ativan as needed for seizures. Avoid using the Dexamethasone unless necessary. Any worsening or changes, return to the ER tonight and we can make different arrangements. Problem Qualifiers MARJAN HENRY DO Oct 29, 2018 17:09 MARYSE GARCIA MD Oct 29, 2018 18:18
[2018-10-29] MEDS ORDERED: NS(*) 0.9% 1000 ML BAG 1,000 ML IV ONE (17:25)
[2018-10-29 17:31] LABS: PLATELET COUNT, AUTOMATED 243 K/uL (150-450)
[2018-10-29] MEDS ORDERED: LORazepam 2 MG/ML VIAL ONE (17:42)
--- NOTE | 2018-10-29 19:04 | RADIOLOGY IMAGING REPORT ---
FACILITY: [facility] PATIENT NAME: Milli Ram : 1970 MR: [id number] V: [id number] EXAM DATE: ORDERING PHYSICIAN: MARJAN HENRY TECHNOLOGIST: Location[place] [facility] [place] Patient: Milli Ram : 1970 Visit/Account:[id number] Date of Sevice: 10/29/[address] scan without contrast HISTORY: Seizure, history of brain malignancy COMPARISONS: September 03, 2017 TECHNIQUE: Non-contrast head CT was performed with sagittal and coronal reformations. One of the following dose optimization techniques was utilized in the performance of this exam: autom ated exposure control; adjustment of the mA and/or kV according to patient size; or use of iterative reconstruction technique. Specific details can be referenced in the facility's radiology CT exam ope rational policy. FINDINGS: The basal cisterns and convexity sulci are maintained. No hydrocephalus or midline shift. Unchanged white matter hypoattenuation in the right parietal and right posterior temporal region with adjacent unchanged craniotomy. Approximate 4 mm hyperdensity in the medial right parietal region is new, sec ond acquisition image 7. Right craniotomy postsurgical change as before. Right parietal and right occipital osseous lucencies have increased in size, first acquisition images 55 and 42 measuring up to 1.3 cm. IMPRESSION: 1. New nonspecific 4 mm medial right parietal region cortical versus CSF space hyperdensity. This ma y represent a chronic cortical calcification (related to prior treatment, inflammation or ischemia) w hich is new compared to prior. Acute to subacute subarachnoid hemorrhage is felt less likely but can not be entirely excluded. A thrombosed cortical vein could appear similarly however this is felt les s likely as well. Recommend follow-up head CT in 12 to 24 hours to document stability. 2. Unchanged right temporoparietal white matter hypoattenuation in keeping with gliosis, residual tu mor or a combination of the two. 3. Right parietal and right occipital skull osseous lucencies have increased in size measuring up to 1.3 cm. These may represent benign atypical hemangiomas or venous lakes. Malignant/metastatic lesi ons cannot be entirely excluded given interval change. Whole-body bone scan may be warranted to exclude metastatic/malignant disease within the remainder of the skeleton. CT follow-up may be warranted to document stability in 2-3 months. Results were called to Dr. Garcia on 10/29/2018 6:57 PM. Report Dictated By: Dandre Fitzpatrick MD at 10/29/2018 6:39 PM Report E-Signed By: Dandre Fitzpatrick MD at 10/29/2018 6:57 PM WSN:[id number]
[2018-10-29 20:15] VITALS: BP 126/62
[2018-10-29] MEDS ORDERED: LORazepam 1 MG TAB PO ONE (20:15)
[2018-10-29] MEDS ORDERED: LORA-1455 PO (20:17)
== END 2018-10-29 20:30 | disposition home or self-care (01) ==
LOC: ER 17:41
DX: G40.409 Other generalized epilepsy and epileptic syndromes, not intractable, without status epilepticus (principal); E86.0 Dehydration
CPT/HCPCS: 70450; 85025; 96360; 99284; A9270; J2060; J7030; 82040; 82247; 82310; 82374; 82435; 82565; 82947; 84075; 84132; 84155; 84295; 84450; 84460; 84520

== ENCOUNTER → 2018-10-29 | Outpatient (CLI) | payer MEDICARE, MEDICAID ==
[2017-05-09 08:32] VITALS: BMI 38.7
[~2018-10-29] MED LIST changes: +LORA-1455 PO
== END ==
LOC: AMB 16:48
PROVIDERS: ATTEND Nurse Practitioner
DX: R56.9 Unspecified convulsions (principal)
CPT/HCPCS: A0425; A0429